=== PATIENT | female | born 1935 | race Caucasian/White ===

== ENCOUNTER 2017-02-27 13:59 | Inpatient (IN) | payer MEDICARE, BC ==
--- NOTE | 2017-02-27 14:35 | RAD ---
SINGLE VIEW OF THE CHEST: COMPARISON: None. HISTORY: Difficulty breathing and dyspnea. FINDINGS: A single view of the chest shows an enlarged cardiomediastinal silhouette. There is opacity along th e right heart border which may represent an infiltrate in the right lower or middle lobe. No pleural effusion is seen. IMPRESSION: Right-sided pneumonia. POS: [facility]
[2017-02-27 14:37] LABS: Actual Bicarbonate (HCO3a) 22.3 mEq/L (22-26); Base Excess (BEa) -7.5 mEq/L (0 (+/-) 2.5); CO2 Tension 64.8 mmHg (35.0-45.0); Hematocrit-ABG 48.4 % (36.0-47.0); Hemoglobin (Hb) 14.2 g/dL (12.0-16.0); O2 Tension (PaO2) 101.7 mmHg (80.0-100.0); pH, Arterial 7.16 (7.35-7.45)
[2017-02-27 14:38] LABS: Analyzer IN Cardio ER; Calcium, Ionized 1.2 mmol/L (1.12-1.30); Puncture Site RRA
[2017-02-27] MEDS ORDERED: cefTRIAXone\\ROCEPHIN 2 GM in Sodium Chloride 0.9% 100 ML IVPB SCH (14:45)
[2017-02-27 15:16] LABS: #Eosinphils 0.1 thou/uL (0.0-0.7); #Lymphocytes 0.6 thou/uL (1.20-3.40); #Monocytes 0.3 thou/uL (0.11-0.59); #Neutrophils 8.2 thou/uL (1.40-6.50); %Eosinophils 0.8 % (0.0-10.0); %Lymphocytes 6.6 % (21.0-51.0); %Monocytes 3.6 % (0.0-10.0); Hemoglobin 14.5 g/dL (12.0-16.0); Mean Corpuscular HGB CONC 32.3 g/dL (32.0-36.0); Mean Corpuscular Hemoglobin 32.2 pg (27.0-31.0); Mean Corpuscular Volume 99.4 fl (81.0-99.0); Mean Platelet Volume 8.7 fL (7.4-10.4); Platelet Count 150 thou/uL (130-400); Red Blood Cell (RBC) Count 4.52 mill/uL (4.20-5.40); White Blood Cell (WBC) Count 9.2 thou/uL (4.8-10.8)
[2017-02-27] MEDS ORDERED: Sodium Chloride 0.9% 1,000 ML IV SCH ×2 (15:38→21:40)
[2017-02-27] MEDS ORDERED: Acetaminophen 650 MG Suppository PR PRN (15:38)
[2017-02-27] MEDS ORDERED: Ondansetron HCl/PF 4 MG/2 ML Vial IVP PRN (15:38)
[2017-02-27 15:39] LABS: ALT (SGPT) 194 U/L (8-55); AST (SGOT) 137 U/L (5-34); Albumin 4.2 g/dL (3.4-4.8); Alkaline Phosphatase 103 U/L (40-150); Anion Gap 19 mmol/L (10-20); BUN (Urea Nitrogen) 22 mg/dL (9.8-20.1); Bilirubin, Total 0.6 mg/dL (0.2-1.2); CK (CPK) 185 U/L (29-168); Calc. Creatinine Clearance 0 mL/min (70-130); Calcium 9.2 mg/dL (7.8-10.44); Carbon Dioxide 20 mmol/L (23-31); Chloride 99 mmol/L (98-107); Estimated GFR-MDRD 58; Globulin 2.8 g/dL (2.4-3.5); Glucose 224 mg/dL (83-110); Potassium 4.3 mmol/L (3.5-5.1); Sodium 134 mmol/L (136-145)
[2017-02-27 15:44] LABS: CKMB 4.5 ng/mL (0-6.6); Troponin I 0.045 ng/mL (< 0.028)
[2017-02-27] MEDS ORDERED: Azithromycin 500 MG in Sodium Chloride 0.9% 250 ML 250 ML IVPB SCH (15:45)
[2017-02-27] MEDS ORDERED: Aspirin 325 MG TAB PO SCH (16:00)
[2017-02-27] MEDS ORDERED: Furosemide 20 MG/2 ML VIAL SLOW IVP SCH (16:00)
[2017-02-27 16:18] LABS: Actual Bicarbonate (HCO3a) 24.3 mEq/L (22-26); Base Excess (BEa) -0.8 mEq/L (0 (+/-) 2.5); CO2 Tension 41.6 mmHg (35.0-45.0); Hematocrit-ABG 45.6 % (36.0-47.0); Hemoglobin (Hb) 14.1 g/dL (12.0-16.0); O2 Tension (PaO2) 106.7 mmHg (80.0-100.0); pH, Arterial 7.38 (7.35-7.45)
[2017-02-27 16:19] LABS: Analyzer IN Cardio ER; Calcium, Ionized 1.2 mmol/L (1.12-1.30); Puncture Site RRA
--- NOTE | 2017-02-27 16:22 | HP ---
PRIMARY CARE PROVIDER: Dr. Gerardo Cole. [facility]. The patient relates she has been sick for 2 days, cough productive of yellow sputum, she was short of breath and saw a tonja waggoner doctor this morning. Got a chest x-ray and noted she had pneumonia and gave her a prescriptio n, but told her if she got worse to come to the hospital. She got progressively worse rapidly after that and came to the hospital and was found to be in acute combined respiratory failure and placed on BiPAP in the emergency room and is now markedly better. She is being admitted to the [facility] and Dr. Tori webb is seeing her in consultation at my request. PAST MEDICAL HISTORY: Hypertension, glaucoma. She takes Zebeta unknown dose, lisinopril unknown dos e, hydrochlorothiazide unknown dose, eyedrops unknown dose. ALLERGIES: She is allergic to BACTRIM. PAST SURGICAL HISTORY: Breast cancer in 1984, cataract surgery, bilateral bowel obstruction in 2007, hysterectomy in the distant past and appendectomy in the distant past. FAMILY HISTORY: Pertinent only for cancers. Her father of cancer, unknown type. Mother o f cholangiocarcinoma. She has an aunt with renal cell carcinoma and multiple other relatives with ca ncer. She is . FULL CODE status. is in the hospital. She has 2 daughters at bedsid e who will be her surrogate decision makers. She does not smoke. Drinks a glass of wine in the even ing, likes Kinyarwanda red frandy. REVIEW OF SYSTEMS: GENERAL: No headaches, dizziness, fainting. EYES: No double vision, blurred vi paulino, flashing lights. EAR, NOSE, AND THROAT: No ear pain or drainage. No nasal bleeding. No trou ble swallowing. She does have allergic drainage. CARDIAC: No chest pain, orthopnea or paroxysmal n octurnal dyspnea. RESPIRATIONS: See present illness. GASTROINTESTINAL: No nausea, vomiting, diarr hea, constipation or abdominal pain. GENITOURINARY: No hematuria, dysuria or nocturia. MUSCULOSKEL ETAL: No pain or swelling in arms or legs. NEUROLOGICAL: No strokes, seizures or focal weakness. PSYCHIATRIC: No anxiety or depression. SKIN: No bruising, bleeding or rash. HEME/LYMPH: No tende r or swollen lymph nodes in axilla, inguinal, or cervical area. PHYSICAL EXAMINATION: GENERAL: Patient is alert, on BiPAP, cooperative. VITAL SIGNS: Blood pressure 164/89, pulse 100, respirations 30 on BiPAP, O2 sat was 94% on nonrebrea ther. When she first came in, her O2 sat was 42% on room air. HEENT: Examination of her head, eyes, ears, nose, and throat reveals pupils are equal, round, and re active to light. Extraocular movements are intact. Sclerae white. Tympanic membranes are poorly vi sualized. She has cerumen bilaterally. Nose is clear. Oral mucous membranes are wet. Dental hygie ne is good. NECK: Supple, without jugular venous distention, adenopathy or thyromegaly. CHEST: Clear to percussion. She has rales in the right lower chest. She has mild to moderate wheez es diffusely. HEART: Regular rate and rhythm. First and second heart sounds are clear and heard, no murmurs or ga llops. ABDOMEN: Soft, bowel sounds are normal. There is no hepatosplenomegaly, no mass, no rebound. EXTREMITIES: Reveal no cyanosis, clubbing or edema. She was markedly cyanotic when she first arrive d. PULSES: Carotid, radial, femoral, and dorsalis pedis pulses full and symmetric. SKIN: Warm and dry without bruises or rash. HEME/LYMPH NODE: No tender or swollen lymph nodes in axilla, inguinal, or cervical area. NEUROLOGIC: Cranial nerves II-XII are intact. Deep tendon reflexes symmetric. Moves all extremitie s. IMAGING DATA: Chest x-ray reviewed by me, borderline cardiomegaly, infiltrate in the right lower aurelio g field. The remainder of her lung mckeon is clear. There is no evidence of congestive heart failur e. Chest x-ray is mildly rotated. EKG is pending. We will review when available. LABORATORY DATA: Only laboratory currently available is arterial blood gas; pH 7.16, pCO2 65, pO2 10 2 on 100% O2. FOLLOWUP: Not in the computer but I have reviewed it and it is normal pH and normal CO2. Comp metab olic profile, CBC are pending. DIAGNOSES: 1. Right-sided pneumonia. 2. Acute combined respiratory failure with hypercapnia and hypoxemia. 3. Diffuse wheezing consistent with acute asthma or reactive airway disease. 4. Hypertension. 5. Glaucoma. PLAN: 1. The patient is on BiPAP and will be going to IMCU. 2. The patient currently being seen by Dr. aMurer, Pulmonology. 3. O2 to keep sat greater than 92%. 4. Nebulizers q.6 hours and q.3 hours p.r.n. 5. Cultures have been drawn. Zithromax 500 mg IV daily, Rocephin 2 grams IV daily. We will review and put on routine home medicines as appropriate. Further recommendations; will await Dr. Maurer's con sult for additional recommendations.
[2017-02-27] MEDS ORDERED: Furosemide 20 MG/2 ML VIAL ONE (16:27)
[2017-02-27 16:30] LABS: Bilirubin Negative (Negative); Blood, Urine Negative (Negative); Clarity CLEAR (Clear); Glucose, Urine (Dipstick) Negative (Negative); Leukocyte Negative (Negative); Nitrite Negative (Negative); Protein, Urine (Dipstick) 100 mg/dL (Neg-Trace); Specific Gravity, Urine 1.023 (1.002-1.036); Urobilinogen 0.2 mg/dL (0.2-1.0); pH, Urine 5.5 (5.0-9.0)
[2017-02-27 16:32] LABS: Bacteria/HPF None Seen HPF (None Seen); Pathc Cast-AUWi Flag 2.16 (0-2.49); RBC/HPF 0-3 HPF (0-3); Squamous Epithelial 0-3 HPF (0-3); WBC/HPF 0-3 HPF (0-3)
[2017-02-27 16:41] LABS: Hyaline Casts/LPF 0-3 HYALINE CAST LPF (0-3 Hyaline); Renal Epithelial None Seen HPF (0-3); Transitional Epithelial NONE SEEN HPF (0-3)
[2017-02-27 17:36] VITALS: BMI 31.7
[2017-02-27 18:36] LABS: Troponin I 0.253 ng/mL (< 0.028)
[2017-02-27 19:32] LABS: Lactic Acid 2.7 mmol/L (0.5-2.2)
[2017-02-27] MEDS: Timolol 0.5% Ophth Soln 5 ml Bottle EA EYE SCH (20:07)
[2017-02-27] MEDS: Brimonidine Tartrate 0.2% Ophth Soln 5 ml Bottle EA EYE SCH (20:07)
[2017-02-27] MEDS: Guaifenesin DM 100-10/5 ML UDCUP PO PRN (20:15)
[2017-02-27] MEDS: Latanoprost 0.005% Ophth Soln 2.5 ml Bottle EA EYE SCH (21:00)
[2017-02-27] MEDS ORDERED: Nitroglycerin 0.4 MG TAB (25 Tab Bottle) PO PRN (21:34)
--- NOTE | 2017-02-27 21:41 | PDOC.EVN ---
Event Note - Event Note Event Note: RN called with elevated troponins. Echo pend. No cardiac history. No CP per RN. Will repeat troponins in AM.
--- NOTE | 2017-02-27 23:14 | CON ---
DATE OF CONSULTATION: 02/27/2017 HISTORY OF PRESENT ILLNESS: This is an 81-year-old female patient of Dr. Cole who was seen today wi th shortness of breath and a cough, but apparently, no fever or chills. It started last night with d ifficulty breathing. X-ray today shows right-sided infiltrate, this appears to be more cephalization as apparently her sats were low on room air. She was placed on BiPAP. She is a nonsmoker with no prior history of TB, history of asthma. PAST MEDICAL HISTORY: Pertinent otherwise for previous glaucoma, hypertension. PAST SURGICAL HISTORY: Mastectomy, small-bowel obstruction, hysterectomy, breast cancer. MEDICATIONS: In the ER, she was given Rocephin and Zithromax. She was placed on BiPAP because of her ongoing respiratory distress to which she has responded quite well. ALLERGIES: SULFA, TRIMETHOPRIM. REVIEW OF SYSTEMS: Otherwise, 10-point negative. PHYSICAL EXAMINATION: VITAL SIGNS: Blood pressure is 120/80, pulse 80, sats 95% on BiPAP, respirations 18. CHEST: Bilateral crackles. CARDIAC: Normal S1, S2, no gallops. ABDOMEN: Soft, no masses. IMAGING: EKG showed a septal infarct. LABORATORY DATA: White count 9000, H&H 14 and 42, platelet count 150. PO2 is 101, PCO2 16% nonrebre ather and BiPAP improved. AST and ALT elevated at 137 and 194. BNP is 817. Influenza is negative, shows cardiomegaly, cephalization, right-sided pneumonia little bit more on the left side. IMPRESSION: 1. Pneumonia versus congestive heart failure. 2. Nonsmoker. 3. Breast cancer. 4. Hypertension. 5. Glaucoma. PLAN: Trial of Lasix. Echocardiogram is ordered. Agree with broad-spectrum antibiotics, steroids, and neb treatments. We will follow.
[2017-02-28 04:24] LABS: #Lymphocytes 0.6 thou/uL (1.20-3.40); #Monocytes 0.8 thou/uL (0.11-0.59); #Neutrophils 13.7 thou/uL (1.40-6.50); %Eosinophils 0.1 % (0.0-10.0); %Lymphocytes 3.9 % (21.0-51.0); Mean Corpuscular HGB CONC 32.7 g/dL (32.0-36.0); Mean Corpuscular Hemoglobin 32.3 pg (27.0-31.0); Mean Corpuscular Volume 98.6 fl (81.0-99.0); Mean Platelet Volume 9.1 fL (7.4-10.4); PLT Morphology Comment Appears Decreased; Platelet Count 106 thou/uL (130-400); Red Blood Cell (RBC) Count 4.03 mill/uL (4.20-5.40)
[2017-02-28 04:28] LABS: Anion Gap 15 mmol/L (10-20); BUN (Urea Nitrogen) 23 mg/dL (9.8-20.1); Calc. Creatinine Clearance 65 mL/min (70-130); Calcium 8.5 mg/dL (7.8-10.44); Carbon Dioxide 24 mmol/L (23-31); Chloride 101 mmol/L (98-107); Estimated GFR-MDRD 74; Glucose 114 mg/dL (83-110); Magnesium 1.7 mg/dL (1.6-2.6); Potassium 3.4 mmol/L (3.5-5.1); Sodium 137 mmol/L (136-145)
[2017-02-28 04:35] LABS: Troponin I 1.004 ng/mL (< 0.028)
--- NOTE | 2017-02-28 08:16 | RAD ---
UPRIGHT PORTABLE CHEST 1 VIEW: Date: 02/28/17 HISTORY: [id number] female with respiratory insufficiency. COMPARISON: 02/27/17. FINDINGS: Monitor leads overlie the chest. Mild cardiomegaly. Patchy alveolar and interstitial opacity changes in the perihilar and infrahilar regions bilaterally, overall stable. Continue short-term follow-up. IMPRESSION: Overall stable bilateral alveolar and interstitial opacities in the perihilar and infrahilar regions bilaterally with mild or borderline cardiomegaly. Continue short-term follow-up. POS: [facility]
[2017-02-28] MEDS: predniSONE 20 MG TAB PO SCH (08:58)
[2017-02-28] MEDS: Aspirin 81 mg Enteric Coated Tablet PO SCH (08:58)
[2017-02-28] MEDS: Bisoprolol Fumarate 5 MG TAB PO SCH (08:59)
[2017-02-28] MEDS: Lisinopril/Hydrochlorothiazide 20 mg/12.5 mg Tablet PO SCH (08:59)
[2017-02-28] MEDS: Timolol 0.5% Ophth Soln 5 ml Bottle EA EYE SCH ×2 (09:00→20:52)
[2017-02-28] MEDS: Enoxaparin Sodium 40 MG/0.4 ML SYRINGE SC SCH (09:01)
[2017-02-28] MEDS: Brimonidine Tartrate 0.2% Ophth Soln 5 ml Bottle EA EYE SCH ×2 (09:01→20:52)
--- NOTE | 2017-02-28 11:17 | PDOC.PN ---
- Subjective Encounter Start Date: 02/28/17 Encounter Start Time: 11:16 Patient seen at bedside. No chest pain, still SOB, weaned off BiPaP. - Objective MAR Reviewed: Yes Vital Signs & Weight: Vital Signs (12 hours) Temp Pulse Resp BP BP Pulse Ox 02/28/17 09:00 98 144/63 H 02/28/17 08:59 100 144/63 H 02/28/17 08:26 98 02/28/17 08:23 93 20 98 02/28/17 08:00 99.0 F 83 22 H 144/63 H 99 02/28/17 04:14 98.1 F 82 18 117/54 L 97 02/28/17 00:32 84 12 97 02/28/17 00:15 99.7 F H 81 20 129/58 L 97 Weight Weight 159 lb 9.6 oz I&O: 02/27/17 02/28/17 03/01/17 06:59 06:59 06:59 Intake Total 1320 Output Total 1700 Balance -380 Result Diagrams: 02/28/17 03:14 02/28/17 03:14 Phys Exam - Physical Examination Constitutional: NAD HEENT: moist MMs Neck: no JVD rales, crackles b/l Cardiovascular: RRR Gastrointestinal: soft Musculoskeletal: no edema, pulses present Neurological: normal sensation Psychiatric: A&O x 3 Dx/Plan (1) Acute respiratory failure Code(s): J96.00 - ACUTE RESPIRATORY FAILURE, UNSP W HYPOXIA OR HYPERCAPNIA Status: Acute (2) Hypertension Code(s): I10 - ESSENTIAL (PRIMARY) HYPERTENSION Status: Chronic (3) Hypokalemia Code(s): E87.6 - HYPOKALEMIA Status: Acute (4) PNA (pneumonia) Code(s): J18.9 - PNEUMONIA, UNSPECIFIED ORGANISM Status: Suspected - Plan cont current plan of care, plan discussed w/ family, continue antibiotics, respiratory therapy, out of bed/ambulate, DVT proph w/lovenox * D/C IV Fluids. * Replete K+ * Follow up echocardiogram * Continue with IV antibiotics * PO Prednisone * Consult Cardiology (increasing troponins, no cardiac workup in the past, with risk factors. Troponins may be due to demand ischemia) * Supportive Care
[2017-02-28] MEDS ORDERED: Potassium Chloride 20 MEQ TAB PO SCH (11:30)
[2017-02-28] MEDS: Acetaminophen 325 MG TAB PO PRN (12:03)
[2017-02-28] MEDS: Guaifenesin DM 100-10/5 ML UDCUP PO PRN (13:20)
--- NOTE | 2017-02-28 13:52 | PRG ---
DATE OF SERVICE: 02/28/2017 SUBJECTIVE: This morning, he is awake, alert, and responsive. She says she is somewhat better. OBJECTIVE: VITAL SIGNS: Blood pressure 140/63, sats 98% on 2 liters, temperature 99. CHEST: Reveals bilateral rhonchi and crackles. CARDIAC: Normal S1, S2. ABDOMEN: Soft, no masses. LABORATORY DATA: Echo pending. I's and O's are negative. X-ray still shows bilateral infiltrates. White count 9000, H and H 11 and 44, platelet count 150. Glucose 224. Sodium 134. Lactic acid was 4. BNP was 87. Troponin was elevated at 0.05. EKG was normal. IMPRESSION: 1. Bilateral bronchopneumonia. 2. Cardiac component related to BNP. PLAN: Continue Zithromax, ceftriaxone, prednisone, neb treatments, and supportive care. Await input from Cardiology. We will follow.
[2017-02-28] MEDS ORDERED: cefTRIAXone\\ROCEPHIN 2 GM in Sodium Chloride 0.9% 100 ML IVPB SCH (15:00)
[2017-02-28] MEDS ORDERED: Azithromycin 500 MG in Sodium Chloride 0.9% 250 ML 250 ML IVPB SCH (16:00)
[2017-02-28] MEDS: Latanoprost 0.005% Ophth Soln 2.5 ml Bottle EA EYE SCH (21:26)
[2017-03-01] MEDS: Guaifenesin DM 100-10/5 ML UDCUP PO PRN (00:56)
[2017-03-01] MEDS: Acetaminophen 325 MG TAB PO PRN ×3 (03:13→19:05)
[2017-03-01 05:09] LABS: #Lymphocytes 0.7 thou/uL (1.20-3.40); #Monocytes 0.5 thou/uL (0.11-0.59); #Neutrophils 9.3 thou/uL (1.40-6.50); %Basophils 0.2 % (0.0-1.0); %Eosinophils 0.1 % (0.0-10.0); %Monocytes 4.7 % (0.0-10.0); %Neutrophils 87.9 % (42.0-75.0); Mean Corpuscular HGB CONC 34.5 g/dL (32.0-36.0); Mean Corpuscular Hemoglobin 33.8 pg (27.0-31.0); Mean Corpuscular Volume 98.1 fl (81.0-99.0); Mean Platelet Volume 9.1 fL (7.4-10.4); Platelet Count 113 thou/uL (130-400); RBC Distribution Width 12.2 % (11.5-14.5); Red Blood Cell (RBC) Count 3.85 mill/uL (4.20-5.40); White Blood Cell (WBC) Count 10.6 thou/uL (4.8-10.8)
[2017-03-01 05:18] LABS: ALT (SGPT) 102 U/L (8-55); AST (SGOT) 67 U/L (5-34); Albumin 3.4 g/dL (3.4-4.8); Alkaline Phosphatase 71 U/L (40-150); Anion Gap 12 mmol/L (10-20); BUN (Urea Nitrogen) 26 mg/dL (9.8-20.1); Bilirubin, Total 0.5 mg/dL (0.2-1.2); Calc. Creatinine Clearance 66 mL/min (70-130); Calcium 8.7 mg/dL (7.8-10.44); Carbon Dioxide 26 mmol/L (23-31); Chloride 101 mmol/L (98-107); Estimated GFR-MDRD 74; Globulin 2.2 g/dL (2.4-3.5); Glucose 128 mg/dL (83-110); Potassium 3.9 mmol/L (3.5-5.1); Protein, Total 5.6 g/dL (6.0-8.3); Sodium 135 mmol/L (136-145)
--- NOTE | 2017-03-01 08:44 | CON ---
DATE OF CONSULTATION: 02/28/2017 REASON FOR CONSULTATION: Elevated troponin. PRIMARY LOCATION MAN: None. HISTORY OF PRESENT ILLNESS: Ms. Hester is a very pleasant 81-year-old woman with no previous cardiac history who recently presented with fevers, chills, cough, and congestion. She was diagnosed with b ronchopneumonia. Her troponin was elevated. No previous history of coronary artery disease. No cory st pain or pressure noted. PAST MEDICAL HISTORY: Hypertension, mastectomy, hysterectomy and breast cancer. ALLERGIES: SULFA and METHOPRENE. REVIEW OF SYSTEMS: Ten point review of systems is reviewed and is as above, otherwise negative. PHYSICAL EXAMINATION: GENERAL: Patient is a pleasant female who is in no acute distress. The patient appears her stated a ge. VITAL SIGNS: Blood pressure 136/56, pulse 90, temperature 98.4. NEUROLOGIC: The patient is alert and oriented times 3 with no focal neurologic deficits. HEENT: Sclerae without icterus. Mouth has moist mucous membranes with normal pallor. NECK: No JVD. Carotid upstroke brisk. No bruits bilaterally. LUNGS: Rales and rhonchi bilaterally. CARDIAC: Regular rate and rhythm with normal S1 and S2. No S3 or S4 noted. No significant rubs, mu rmurs, thrills, or gallops noted throughout the precordium. PMI is not displaced. There is no олег ternal heave. ABDOMEN: Soft, nontender, nondistended. No peritoneal signs present. No hepatosplenomegaly. No abnormal striae. EXTREMITIES: 2+ femoral and 2+ dorsalis pedis pulses. No cyanosis, clubbing, or edema. SKIN: No gross abnormalities. PERTINENT LABORATORY DATA AND IMAGING DATA: Hemoglobin 10.6, troponin 1.004, creatinine 0.75. EKG, normal sinus rhythm, nonspecific ST-T wave changes. IMPRESSION: 1. Elevated troponin. 2. Bronchopneumonia. RECOMMENDATIONS: Elevated troponin likely related to underlying condition. She has been diagnosed w ith bronchopneumonia. She is currently on antibiotic therapy. This is not consistent with acute cor onary syndrome. Would treat conservatively from CV standpoint. Would recommend aspirin, beta blocke r therapy, BEATRIZ inhibitor therapy and statin treatment. Antibiotic therapy per primary team and Dr. Tori Maurer. We will continue to follow with you.
[2017-03-01] MEDS: Aspirin 81 mg Enteric Coated Tablet PO SCH (09:21)
[2017-03-01] MEDS: Bisoprolol Fumarate 5 MG TAB PO SCH (09:21)
[2017-03-01] MEDS: predniSONE 20 MG TAB PO SCH (09:21)
[2017-03-01] MEDS: Enoxaparin Sodium 40 MG/0.4 ML SYRINGE SC SCH (09:22)
[2017-03-01] MEDS: Lisinopril/Hydrochlorothiazide 20 mg/12.5 mg Tablet PO SCH (09:22)
[2017-03-01] MEDS: Timolol 0.5% Ophth Soln 5 ml Bottle EA EYE SCH ×2 (09:23→20:13)
[2017-03-01] MEDS: Brimonidine Tartrate 0.2% Ophth Soln 5 ml Bottle EA EYE SCH ×2 (09:23→20:14)
--- NOTE | 2017-03-01 09:32 | RAD ---
UPRIGHT PORTABLE CHEST 1 VIEW: Date: 03/01/17 HISTORY: 81-year-old female with respiratory insufficiency. FINDINGS: Again noted is cardiomegaly with bilateral alveolar and interstitial parenchymal changes in the perih ilar regions and lower lung zones, stable from prior study. IMPRESSION: Stable bilateral parenchymal changes and cardiomegaly. Continue short-term follow-up for clearing or stability. POS: [facility]
--- NOTE | 2017-03-01 11:34 | PDOC.PN ---
- Subjective Encounter Start Date: 03/01/17 Encounter Start Time: 11:30 Patient seen at bedside. Was SOB last night, and felt SOB earlier this morning when going to the bathroom. - Objective MAR Reviewed: Yes Vital Signs & Weight: Vital Signs (12 hours) Temp Pulse Resp BP Pulse Ox 03/01/17 11:22 97.1 F L 79 20 148/64 H 100 03/01/17 09:23 90 03/01/17 09:22 98 03/01/17 08:18 90 18 97 03/01/17 07:11 98.4 F 90 18 136/56 L 95 03/01/17 05:01 97.5 F L 92 18 153/72 H 100 03/01/17 03:45 83 16 95 03/01/17 00:29 81 12 100 02/28/17 23:50 98.6 F 88 22 H 136/62 100 Weight Weight 158 lb 9.6 oz I&O: 02/28/17 03/01/17 03/02/17 06:59 06:59 06:59 Intake Total 1320 2350 Output Total 1700 1025 Balance -380 1325 Result Diagrams: 03/01/17 04:33 03/01/17 04:33 Phys Exam - Physical Examination Constitutional: NAD HEENT: moist MMs Neck: no nodes mild wheezings, rales Cardiovascular: RRR Gastrointestinal: soft Musculoskeletal: pulses present Neurological: moves all 4 limbs Psychiatric: A&O x 3 Skin: normal turgor Dx/Plan (1) Acute respiratory failure Code(s): J96.00 - ACUTE RESPIRATORY FAILURE, UNSP W HYPOXIA OR HYPERCAPNIA Status: Acute (2) Hypertension Code(s): I10 - ESSENTIAL (PRIMARY) HYPERTENSION Status: Chronic (3) Hypokalemia Code(s): E87.6 - HYPOKALEMIA Status: Acute (4) PNA (pneumonia) Code(s): J18.9 - PNEUMONIA, UNSPECIFIED ORGANISM Status: Suspected (5) Influenza B Code(s): J10.1 - FLU DUE TO OTH IDENT INFLUENZA VIRUS W OTH RESP MANIFEST Status: Acute - Plan cont current plan of care, continue antibiotics, social contact worker, respiratory therapy, out of bed/ambulate, DVT proph w/lovenox * Continue with current management. * Start Tamiflu for Influenza (symptoms began last Thursday) * Appreciate Cardiology input- Troponin elevation is likely from pulmonary component. Conservative treatment at this point. Will follow up further recommendations * Low dose BB * ASA/BEATRIZ * Will hold statin until LFTs normalize. Check in AM * OOB as tolerated
[2017-03-01] MEDS ORDERED: Oseltamivir 75 MG CAP PO SCH ×2 (11:45→21:00)
[2017-03-01] MEDS ORDERED: Furosemide 20 MG TAB PO SCH (14:00)
--- NOTE | 2017-03-01 15:57 | PRG ---
DATE OF SERVICE: 03/01/2017 SUBJECTIVE: This morning, she says she had difficulty breathing. PHYSICAL EXAMINATION: VITAL SIGNS: Blood pressure 148/64, O2 saturation 100% on 2 liters, temperature 97. CHEST: Decreased breath sounds without any wheezing. CARDIAC: Normal S1, S2. ABDOMEN: Soft, no masses. LABORATORY DATA AND IMAGING DATA: Electrolytes are normal. White count is 10,000. X-ray shows righ t-sided pleural effusion, small infiltrate. Her echo showed depressed EF of 40%-45%. IMPRESSION: 1. Right-sided pneumonia versus pleural effusion. 2. Cardiomegaly. 3. Influenza B. I doubt this is significant pneumonia. PLAN: I am switching over to oral doxycycline. I think in my mind, most of her problem appears to b e cardiac, start low dose diuretics. Continue Coreg. She is started on Tamiflu for influenza B. We will follow.
[2017-03-01] MEDS ORDERED: Carvedilol 3.125 MG TAB PO SCH (17:00)
[2017-03-01] MEDS: Simethicone Chewable 80 MG TAB PO PRN (19:05)
[2017-03-01] MEDS: Oseltamivir 75 MG CAP PO SCH (20:12)
[2017-03-01] MEDS: Doxycycline 100 MG CAP PO SCH (20:13)
[2017-03-01] MEDS: Latanoprost 0.005% Ophth Soln 2.5 ml Bottle EA EYE SCH (21:12)
[2017-03-02 04:18] LABS: #Lymphocytes 0.8 thou/uL (1.20-3.40); #Monocytes 0.5 thou/uL (0.11-0.59); #Neutrophils 5.6 thou/uL (1.40-6.50); %Basophils 0.1 % (0.0-1.0); %Eosinophils 0.2 % (0.0-10.0); %Monocytes 7.1 % (0.0-10.0); %Neutrophils 81.6 % (42.0-75.0); Hemoglobin 12.7 g/dL (12.0-16.0); Mean Corpuscular HGB CONC 32.8 g/dL (32.0-36.0); Mean Corpuscular Hemoglobin 32.4 pg (27.0-31.0); Mean Corpuscular Volume 98.7 fl (81.0-99.0); Platelet Count 130 thou/uL (130-400); Red Blood Cell (RBC) Count 3.91 mill/uL (4.20-5.40); White Blood Cell (WBC) Count 6.8 thou/uL (4.8-10.8)
[2017-03-02 04:39] LABS: ALT (SGPT) 75 U/L (8-55); AST (SGOT) 52 U/L (5-34); Albumin 3.4 g/dL (3.4-4.8); Alkaline Phosphatase 62 U/L (40-150); Anion Gap 13 mmol/L (10-20); BUN (Urea Nitrogen) 23 mg/dL (9.8-20.1); Bilirubin, Direct 0.3 mg/dL (0.1-0.3); Bilirubin, Total 0.6 mg/dL (0.2-1.2); Calc. Creatinine Clearance 68 mL/min (70-130); Calcium 8.7 mg/dL (7.8-10.44); Carbon Dioxide 30 mmol/L (23-31); Chloride 98 mmol/L (98-107); Estimated GFR-MDRD 78; Globulin 2.4 g/dL (2.4-3.5); Glucose 103 mg/dL (83-110); Potassium 4.1 mmol/L (3.5-5.1); Protein, Total 5.8 g/dL (6.0-8.3); Sodium 137 mmol/L (136-145)
[2017-03-02] MEDS: Guaifenesin DM 100-10/5 ML UDCUP PO PRN ×2 (05:02→20:43)
[2017-03-02] MEDS: Simethicone Chewable 80 MG TAB PO PRN ×2 (05:26→20:43)
[2017-03-02] MEDS ORDERED: Furosemide 40 MG/4 ML VIAL IVP SCH (07:45)
--- NOTE | 2017-03-02 08:11 | RAD ---
CHEST 1 VIEW: Date: 03/02/17 HISTORY: Dyspnea. Follow-up. COMPARISON: 03/01/17. FINDINGS: Cardiac silhouette remains magnified and enlarged. Pulmonary vasculature remains slightly engorged. P atchy bibasilar infiltrates have improved slightly. Mediastinum remains midline. monitor worker lead s overlie the chest. IMPRESSION: Slight interval improved aeration at the lung bases. Pulmonary vascular congestion otherwise remains stable. POS: [facility]
[2017-03-02] MEDS: Brimonidine Tartrate 0.2% Ophth Soln 5 ml Bottle EA EYE SCH ×2 (08:23→20:43)
[2017-03-02] MEDS: Timolol 0.5% Ophth Soln 5 ml Bottle EA EYE SCH ×2 (08:23→20:44)
[2017-03-02] MEDS: Doxycycline 100 MG CAP PO SCH ×2 (08:24→20:43)
[2017-03-02] MEDS: predniSONE 20 MG TAB PO SCH (08:24)
[2017-03-02] MEDS: Oseltamivir 75 MG CAP PO SCH ×2 (08:24→20:43)
[2017-03-02] MEDS: Aspirin 81 mg Enteric Coated Tablet PO SCH (08:24)
[2017-03-02] MEDS: Lisinopril/Hydrochlorothiazide 20 mg/12.5 mg Tablet PO SCH (08:24)
[2017-03-02] MEDS: Enoxaparin Sodium 40 MG/0.4 ML SYRINGE SC SCH (08:25)
[2017-03-02] MEDS: Bisoprolol Fumarate 5 MG TAB PO SCH (08:25)
[2017-03-02] MEDS ORDERED: Furosemide 20 MG TAB PO SCH (09:00)
--- NOTE | 2017-03-02 09:07 | PRG ---
DATE OF SERVICE: 03/02/2017 Ms. Hester continues to have shortness of breath, although improved. No chest pain or pressure noted . PHYSICAL EXAMINATION: VITAL SIGNS: Blood pressure 172/88, pulse 96, temperature is afebrile. LUNGS: Rhonchi and rales bilaterally with crackles. CARDIAC: Regular rate and rhythm. ABDOMEN: Soft, nontender, nondistended. EXTREMITIES: No edema. PERTINENT LABORATORY DATA: Hemoglobin 12.7, peak troponin 1.004. IMPRESSION: Shortness of breath. RECOMMENDATIONS: I discussed the case with Dr. Wally Maurer. He feel this is less likely a viral illne ss. Her left ventricular ejection fraction as diminished at 40-45 with wall motion abnormalities sug gesting LAD distribution. At this point, we will continue to diuresis. We will also assist with blo od pressure management. She is currently on lisinopril. Carvedilol was discontinued. She is on bis oprolol and would. Continue aspirin. Would also recommend statin therapy. I also discussed coronary angiography with Ms. Hester. The risks included, but are not limited to th e following: , stroke, VA, need for emergency surgery, loss of limb, bleeding, and infection, a s well as a reaction to the dye causing kidney failure and needing long-term dialysis. I also discus sed the risks of PCI to include all of the above including coronary dissection and perforation in add ition to acute stent thrombosis and restenosis. All questions about the procedure were answered. Gi robe the above, the patient agreed to proceed with coronary angiography and possible PCI. There are no contraindications for drug-coated stent placement if needed. Further recommendation fay l be pending the above.
--- NOTE | 2017-03-02 09:26 | PRG ---
DATE OF SERVICE: 03/02/2017 This morning she is better, less short of breath. X-ray still shows cardiomegaly, small pleural effu paulino and infiltrate. She denied any cough. PHYSICAL EXAMINATION: VITAL SIGNS: Blood pressure elevated 172/88, sats are 99 on 2 liters, respirations 27. I's and O's are 2140 in, 125 out. CHEST: Crackles bilaterally. CARDIOVASCULAR: Normal S1-S2. No gallops. White count normal at 6. Electrolytes are normal. IMPRESSION: 1. Congestive heart failure. 2. Possibly superimposed pneumonia or bronchitis. PLAN: She is for a cath tomorrow. She has got influenza B. She is on Tamiflu. Continue diuretics low dose, supportive care. I will follow.
--- NOTE | 2017-03-02 11:44 | PDOC.PN ---
- Subjective Encounter Start Date: 03/02/17 Encounter Start Time: 12:00 Subjective: Cough somewhat improved, SOB much better. No chest pain currently. Did -: have some left upper back pain with movement and deep breaths last night. - Objective MAR Reviewed: Yes Vital Signs & Weight: Vital Signs (12 hours) Temp Pulse Resp BP BP Pulse Ox 03/02/17 08:32 99 03/02/17 08:30 96 18 99 03/02/17 08:24 80 172/88 H 03/02/17 08:23 80 172/88 H 03/02/17 08:00 97.9 F 80 19 91 L 03/02/17 07:26 97.9 F 80 19 172/88 H 91 L 03/02/17 05:23 98 03/02/17 04:00 98.2 F 78 20 154/67 H 100 03/02/17 01:29 71 18 100 03/02/17 00:00 98.8 F 65 20 144/65 H 100 Weight Weight 159 lb 2 oz I&O: 03/01/17 03/02/17 03/03/17 06:59 06:59 06:59 Intake Total 2350 2140 Output Total 1025 1250 Balance 1325 890 Result Diagrams: 03/02/17 03:33 03/02/17 03:33 Phys Exam - Physical Examination Constitutional: NAD HEENT: moist MMs coarse breath sounds bilaterally, good air movement throughout Cardiovascular: RRR, no significant murmur Gastrointestinal: soft, positive bowel sounds Musculoskeletal: no edema Neurological: non-focal, moves all 4 limbs Psychiatric: normal affect, A&O x 3 Dx/Plan (1) Influenza B Code(s): J10.1 - FLU DUE TO OTH IDENT INFLUENZA VIRUS W OTH RESP MANIFEST Status: Acute (2) PNA (pneumonia) Code(s): J18.9 - PNEUMONIA, UNSPECIFIED ORGANISM Status: Suspected Comment: On Doxycycline and Tamiflu (3) Acute respiratory failure Code(s): J96.00 - ACUTE RESPIRATORY FAILURE, UNSP W HYPOXIA OR HYPERCAPNIA Status: Acute (4) Hypokalemia Code(s): E87.6 - HYPOKALEMIA Status: Resolved (5) Hypertension Code(s): I10 - ESSENTIAL (PRIMARY) HYPERTENSION Status: Chronic (6) Acute systolic CHF (congestive heart failure) Code(s): I50.21 - ACUTE SYSTOLIC (CONGESTIVE) HEART FAILURE Status: Acute Comment: EF 40-45% (7) NSTEMI (non-ST elevated myocardial infarction) Code(s): I21.4 - NON-ST ELEVATION (NSTEMI) MYOCARDIAL INFARCTION Status: Acute Comment: Plan for cath 03/03/2017 - Plan cont current plan of care, continue antibiotics, DVT proph w/lovenox * . - Discharge Day Encounter end time: 12:30
[2017-03-02] MEDS: Latanoprost 0.005% Ophth Soln 2.5 ml Bottle EA EYE SCH (21:12)
[2017-03-03] MEDS: Lisinopril/Hydrochlorothiazide 20 mg/12.5 mg Tablet PO SCH (05:20)
[2017-03-03] MEDS: predniSONE 20 MG TAB PO SCH (05:21)
[2017-03-03] MEDS: Bisoprolol Fumarate 5 MG TAB PO SCH (05:21)
[2017-03-03] MEDS: Aspirin 81 mg Enteric Coated Tablet PO SCH (05:21)
[2017-03-03] MEDS: Enoxaparin Sodium 40 MG/0.4 ML SYRINGE SC SCH (05:22)
[2017-03-03 08:06] LABS: INR-International Normal Ratio 0.9; Prothrombin Time 12.5 SEC (12.0-14.7)
[2017-03-03] MEDS ORDERED: Iopamidol 370 76% 100 ML VIAL ONE (08:12)
[2017-03-03] MEDS ORDERED: Communication Order-Pharmacy FS SCH (09:30)
[2017-03-03] MEDS ORDERED: Diazepam 5 MG TAB PO SCH (09:30)
[2017-03-03] MEDS ORDERED: Acetaminophen/Codeine 30-300mg Tablet PO PRN ×2 (10:42)
[2017-03-03] MEDS ORDERED: Nitroglycerin 0.4 MG TAB (25 Tab Bottle) SL PRN (10:42)
[2017-03-03] MEDS ORDERED: traMADol HCl 50 MG TAB PO PRN (10:42)
[2017-03-03] MEDS ORDERED: Sodium Chloride 0.9% 1,000 ML IV SCH (10:45)
[2017-03-03] MEDS ORDERED: Sodium Chloride 0.9% 200 ML IV SCH (11:00)
[2017-03-03] MEDS: Sodium Chloride 0.9% 1,000 ML IV SCH (11:16)
[2017-03-03] MEDS: Doxycycline 100 MG CAP PO SCH ×2 (11:23→21:20)
[2017-03-03] MEDS: Oseltamivir 75 MG CAP PO SCH ×2 (11:23→21:21)
[2017-03-03] MEDS: Brimonidine Tartrate 0.2% Ophth Soln 5 ml Bottle EA EYE SCH ×2 (11:23→21:19)
[2017-03-03] MEDS: Timolol 0.5% Ophth Soln 5 ml Bottle EA EYE SCH ×2 (11:24→21:19)
--- NOTE | 2017-03-03 11:51 | PRG ---
DATE OF SERVICE: 03/03/2017 SUBJECTIVE: Aimee Hester is still complaining of cough, but less shortness of breath, chest pain. She is scheduled for cardiac catheterization today. OBJECTIVE: VITAL SIGNS: Blood pressure 167/74, sats are 97% on 2 liters, respiratory rate 18, temperature 97. CHEST: Chest reveals decreased breath sounds, no wheezing. CARDIAC: Normal S1, S2. No gallops. ABDOMEN: Soft, no masses. IMPRESSION: 1. Abnormal troponin. 2. Congestive heart failure. 3. Pneumonia. 4. Bronchitis and rhinitis. PLAN: I will start Flonase for postnasal drip, otherwise await results of the cath, antibiotics, fanny roids. We will follow.
--- NOTE | 2017-03-03 19:38 | PDOC.PN ---
- Subjective Encounter Start Date: 03/03/17 Encounter Start Time: 19:00 Patient seen and examined. No new complaints. No overnight events. No CP. Dry cough +. s/p Cath - Objective MAR Reviewed: Yes Vital Signs & Weight: Vital Signs (12 hours) Temp Pulse Resp BP BP Pulse Ox 03/03/17 18:42 83 18 95 03/03/17 16:00 97.6 F 85 24 H 158/58 H 92 L 03/03/17 12:58 80 18 96 03/03/17 12:00 97 F L 78 24 H 168/73 H 95 03/03/17 11:24 84 158/73 H 03/03/17 10:42 84 16 158/73 H 158/73 H 94 L 03/03/17 09:06 84 20 96 03/03/17 08:00 97 F L 79 24 H 167/74 H 97 03/03/17 07:41 98.3 F 82 18 97 Weight Weight 159 lb 2 oz I&O: 03/02/17 03/03/17 03/04/17 06:59 06:59 06:59 Intake Total 2140 720 1200 Output Total 1250 1950 950 Balance 890 -1230 250 Result Diagrams: 03/04/17 04:26 03/04/17 04:26 EKG Reviewed by me: Yes (Tele SR) Phys Exam - Physical Examination Constitutional: NAD Respiratory: no wheezing, no rhonchi Cardiovascular: RRR, no rub Gastrointestinal: soft, non-tender, positive bowel sounds Musculoskeletal: no edema Neurological: moves all 4 limbs Dx/Plan - Plan DVT proph w/SCDs IMPRESSION: 1. Acute hypoxic/hypercapnic respiratory failure due to Pneumonia ?pneumococcus and Influenza B 2. Elevated troponins - probably due to demand ischemia 3. Severe Sepsis with acute organ dysfunction due Pneumonia/Influenza B 4. HTN 5. Acute diastolic HF 6. Glaucoma/Metabolic acidosis/Lactic acidosis/ Hyponatremia/ Hypokalemia/CKD 3. PLAN: * s/p Cath - no intervention per patient - report pend * Cont current meds as below * Cardio/Pulm following * AM labs * Cont to monitor * Cont Tamiflu/Atbx/steroids Review of Systems - Review of Systems Cardiovascular: negative: chest pain, palpitations, orthopnea, paroxysmal nocturnal dyspnea, edema, light headedness Gastrointestinal: negative: Nausea, Vomiting, Abdominal Pain, Diarrhea, Constipation, Melena, Hematochezia - Medications/Allergies Allergies/Adverse Reactions: Allergies Allergy/AdvReac Type Severity Reaction Status Date / Time sulfamethoxazole Allergy Verified 02/27/17 14:39 [From Bactrim] trimethoprim [From Bactrim] Allergy Verified 02/27/17 14:39 Medications: Current Medications Acetaminophen (Tylenol) 650 mg [place] Q4H PRN PRN Reason: Headache/Fever or Pain Acetaminophen (Tylenol) 650 mg PO Q6H PRN PRN Reason: Mild Pain (1-3) Last Admin: 03/01/17 19:05 Dose: 650 mg Acetaminophen/Codeine Phosphate (Tylenol #3) 1 tab PO Q4H PRN PRN Reason: Mild Pain (1-3) Acetaminophen/Codeine Phosphate (Tylenol #3) 2 tab PO Q4H PRN PRN Reason: Moderate Pain (4-6) Albuterol/Ipratropium (Duoneb) 3 ml NEB [id number] [facility] Last Admin: 03/03/17 18:42 Dose: 3 ml Bisoprolol Fumarate (Zebeta) 10 mg PO DAILY [facility] Last Admin: 03/03/17 05:21 Dose: 10 mg Brimonidine Tartrate (Alphagan 0.2% [facility]) 1 drop EA EYE BID [facility] Last Admin: 03/03/17 11:23 Dose: 1 drop Doxycycline Hyclate (Vibramycin) 100 mg PO BID [facility] Last Admin: 03/03/17 11:23 Dose: 100 mg Enoxaparin Sodium (Lovenox) 40 mg SC 0900 [facility] Last Admin: 03/03/17 05:22 Dose: Not Given Fluticasone Propionate (Flonase Nasal [place]) 0 gm NASAL DAILY [facility] Guaifenesin/Dextromethorphan (Robitussin Dm) 5 ml PO Q4H PRN PRN Reason: Cough Last Admin: 03/02/17 20:43 Dose: 5 ml Lisinopril/HCTZ (Prinizide 20-12.5) 1 tab PO DAILY [facility] Last Admin: 03/03/17 05:20 Dose: 1 tab Sodium Chloride (Normal Saline 0.9%) 1,000 mls @ 100 mls/hr IV .Q10H [facility] Last Admin: 03/03/17 11:16 Dose: Not Given Latanoprost (Xalatan 0.005% Ophth Soln) 1 drop EA EYE HS [facility] Last Admin: 03/02/17 21:12 Dose: 1 drop Nitroglycerin (Nitrostat) 0.4 mg PO Q5MIN PRN PRN Reason: Chest Pain Nitroglycerin (Nitrostat) 0.4 mg SL Q5MIN PRN PRN Reason: Chest Pain Ondansetron HCl (Zofran) 4 mg IVP Q6H PRN PRN Reason: Nausea/Vomiting Oseltamivir Phosphate (Tamiflu) 75 mg PO BID [facility] Stop: 03/05/17 21:01 Last Admin: 03/03/17 11:23 Dose: 75 mg Prednisone (Prednisone) 20 mg PO QA-[facility] Last Admin: 03/03/17 05:21 Dose: 20 mg Simethicone (Mylicon Chewable) 80 mg PO PCHS PRN PRN Reason: Gas Pain Last Admin: 03/02/17 20:43 Dose: 80 mg Sodium Chloride (Flush - Normal Saline) 10 ml IVF Q12HR [facility] Last Admin: 03/03/17 05:22 Dose: 10 ml Sodium Chloride (Flush - Normal Saline) 10 ml IVF PRN PRN PRN Reason: Saline Flush Timolol Maleate (Timoptic 0.5% Ophth Soln) 1 drop EA EYE BID [facility] Last Admin: 03/03/17 11:24 Dose: 1 drop Tramadol HCl (Ultram) 50 mg PO Q6H PRN PRN Reason: Moderate Pain (4-6)
[2017-03-03] MEDS: Latanoprost 0.005% Ophth Soln 2.5 ml Bottle EA EYE SCH (21:21)
[2017-03-03] MEDS: Acetaminophen 325 MG TAB PO PRN (22:15)
[2017-03-03] MEDS: Guaifenesin DM 100-10/5 ML UDCUP PO PRN (22:15)
[2017-03-03] MEDS: Simethicone Chewable 80 MG TAB PO PRN (22:27)
[2017-03-04] MEDS: hydrALAZINE 20 MG/ML VIAL SLOW IVP PRN ×3 (00:33→22:05)
[2017-03-04] MEDS: Simethicone Chewable 80 MG TAB PO PRN ×2 (04:56→14:02)
[2017-03-04 04:59] LABS: #Lymphocytes 0.7 thou/uL (1.20-3.40); #Monocytes 0.6 thou/uL (0.11-0.59); #Neutrophils 3.5 thou/uL (1.40-6.50); %Basophils 0.2 % (0.0-1.0); %Eosinophils 0.8 % (0.0-10.0); %Lymphocytes 15.2 % (21.0-51.0); %Monocytes 11.9 % (0.0-10.0); %Neutrophils 71.9 % (42.0-75.0); Hemoglobin 13.2 g/dL (12.0-16.0); Mean Corpuscular HGB CONC 32.4 g/dL (32.0-36.0); Mean Corpuscular Hemoglobin 31.6 pg (27.0-31.0); Mean Corpuscular Volume 97.4 fl (81.0-99.0); Mean Platelet Volume 8.1 fL (7.4-10.4); Platelet Count 130 thou/uL (130-400); RBC Distribution Width 11.8 % (11.5-14.5); Red Blood Cell (RBC) Count 4.18 mill/uL (4.20-5.40); White Blood Cell (WBC) Count 4.8 thou/uL (4.8-10.8)
[2017-03-04 05:29] LABS: ALT (SGPT) 58 U/L (8-55); AST (SGOT) 47 U/L (5-34); Albumin 3.2 g/dL (3.4-4.8); Alkaline Phosphatase 61 U/L (40-150); Anion Gap 10 mmol/L (10-20); BUN (Urea Nitrogen) 23 mg/dL (9.8-20.1); Bilirubin, Total 0.8 mg/dL (0.2-1.2); Calc. Creatinine Clearance 76 mL/min (70-130); Calcium 8.6 mg/dL (7.8-10.44); Carbon Dioxide 33 mmol/L (23-31); Chloride 97 mmol/L (98-107); Estimated GFR-MDRD 87; Globulin 2.2 g/dL (2.4-3.5); Glucose 101 mg/dL (83-110); Magnesium 1.6 mg/dL (1.6-2.6); Phosphorus 2.4 mg/dL (2.3-4.7); Potassium 3.9 mmol/L (3.5-5.1); Protein, Total 5.4 g/dL (6.0-8.3); Sodium 136 mmol/L (136-145)
[2017-03-04] MEDS: Doxycycline 100 MG CAP PO SCH ×2 (08:41→22:03)
[2017-03-04] MEDS: predniSONE 20 MG TAB PO SCH (08:41)
[2017-03-04] MEDS: Oseltamivir 75 MG CAP PO SCH ×2 (08:41→22:03)
[2017-03-04] MEDS: Bisoprolol Fumarate 5 MG TAB PO SCH (08:41)
[2017-03-04] MEDS: Enoxaparin Sodium 40 MG/0.4 ML SYRINGE SC SCH (08:42)
[2017-03-04] MEDS: Lisinopril/Hydrochlorothiazide 20 mg/12.5 mg Tablet PO SCH (08:42)
[2017-03-04] MEDS: Fluticasone Propionate Nasal Spray 16 gm Bottle NASAL SCH (08:42)
[2017-03-04] MEDS: Brimonidine Tartrate 0.2% Ophth Soln 5 ml Bottle EA EYE SCH ×2 (08:43→21:58)
[2017-03-04] MEDS: Timolol 0.5% Ophth Soln 5 ml Bottle EA EYE SCH ×2 (08:43→21:58)
--- NOTE | 2017-03-04 11:02 | PRG ---
DATE OF SERVICE: 03/04/2017 This morning she is awake, alert, responsive. Her cardiac cath apparently was negative as per Cardio logy. PHYSICAL EXAMINATION: VITAL SIGNS: Blood pressure 177/84, elevated. Sats are 94, respirations 18. She is complaining of gas. I's and O's have been 720 in, 950 out. CHEST: Chest reveals decreased breath sounds without any wheezing. CARDIAC: Normal S1, S2. ABDOMEN: Soft, no masses. LABORATORY DATA: White count is normal. Electrolytes are normal. Liver function is improved. IMPRESSION: 1. Congestive heart failure. 2. Pneumonia, improved. PLAN: She probably needs blood pressure better controlled. Hopefully, she can be discharged home in the next 24-48 hours.
[2017-03-04] MEDS: Sodium Chloride 0.9% 1,000 ML IV SCH (12:06)
--- NOTE | 2017-03-04 13:28 | PQF ---
CLINICAL DOCUMENTATION IMPROVEMENT CLARIFICATION FORM: ICD-10 Updated PLEASE DO AN ADDENDUM TO THE PROGRESS NOTE WITH ANY DOCUMENTATION UPDATES OR ADDITIONS AND CARRY THROUGH TO DC SUMMARY. THANK YOU. DATE: 03/04/17 ATTN: Dr. Winchester Please exercise your independent, professional judgment in responding to the clarification form. Clinical indicators are provided on the bottom of this form for your review In addition, please specify: Present on Admission (POA): [ ] Yes [ ] No [ ] Unable to determine Please check appropriate box(s): [ ] Sepsis due to: (Pna, UTI, gangrenous gall bladder, etc.) [ ] Severe sepsis with acute organ dysfunction of: (Examples: respiratory failure, encephalopathy, acute kidney failure, other ) [ ] Other diagnosis [ ] Unable to determine For continuity of documentation, please document condition throughout progress notes and discharge summary. Thank You. CLINICAL INDICATORS - SIGNS / SYMPTOMS / LABS LAB 02/27/17: LACTIC ACID 4.0 H&P: BP 164/89, PULSE 100, RESP. 30 ON BIPAP, O2 SAT WAS 94% ON NONREBREATHER. WHEN SHE FIRST CAME IN, HER O2 SAT WAS 42% ON ROOM AIR PN 03/03: SEPSIS WITH ACUTE ORGAN DYSFUNCTION D/T #1 1. ACUTE HYPOXIC/HYPERCAPNIC RESP. FAILURE D/T PNEUMONIA ?PNEUMOCOCCUS & INFLUENZA B RISKS: H&P: RIGHT-SIDED PNEUMONIA, ACUTE COMBINED RESPIRATORY FAILURE W/ HYPERCAPNIA & HYPOXEMIA TREATMENT: CPOE 02/27/17: ROCEPHIN 2 GM, IVPB 1500. DC'D 03/01. CPOE 02/27/17: ZITHROMAX 500 MG IV 1600. DC'D 03/01. CPOE 03/01/17: DOXYCYCLINE 100 MG PO BID Thank you, Karen (This form is maintained as a part of the permanent medical record) 2014 [employer]. All Rights Reserved Karen Lai, RN, BSN [email or web address] Office: [phone] [facility]
[2017-03-04] MEDS: Acetaminophen 325 MG TAB PO PRN (14:02)
--- NOTE | 2017-03-04 14:52 | PRG ---
DATE OF SERVICE: 03/04/2017 SUBJECTIVE: Ms. Hester is stable. Her blood pressure has been elevated. No chest pain noted. Her shortness of breath is slowly improving. She recently underwent coronary angiography and was not fou nd to have significant coronary disease. OBJECTIVE: VITAL SIGNS: Blood pressure 148/63, pulse 83, temperature afebrile. LUNGS: Rhonchi and rales bilaterally. CARDIAC: Regular rate and rhythm. ABDOMEN: Soft, nontender, nondistended. EXTREMITIES: No edema. IMPRESSION: 1. Elevated troponin. 2. Shortness of breath. 3. Recent viral illness. RECOMMENDATIONS: From a cardiovascular standpoint, Ms. Hester is stable. She had no significant cor onary disease on recent angio. Her LVEDP was mildly elevated at 20. At this point, we would continu e pulmonary support.
--- NOTE | 2017-03-04 17:37 | PDOC.PN ---
- Subjective Encounter Start Date: 03/04/17 Encounter Start Time: 17:36 Patient seen and examined. SOB improving. Cough - dry. No overnight events - Objective MAR Reviewed: Yes Vital Signs & Weight: Vital Signs (12 hours) Temp Pulse Resp BP BP Pulse Ox 03/04/17 16:03 98.0 F 81 18 165/73 H 91 L 03/04/17 13:00 148/63 H 03/04/17 12:36 83 184/84 H 03/04/17 12:31 98.1 F 83 20 184/84 H 91 L 03/04/17 08:43 91 177/84 H 03/04/17 08:42 91 177/84 H 03/04/17 07:15 97.8 F 91 18 94 L 03/04/17 07:10 97.8 F 91 18 177/84 H 94 L 03/04/17 06:40 96 03/04/17 06:39 89 16 Weight Weight 159 lb 2 oz I&O: 03/03/17 03/04/17 03/05/17 06:59 06:59 06:59 Intake Total 720 1540 912 Output Total 1950 1650 1325 Balance -1230 -110 -413 Result Diagrams: 03/04/17 04:26 03/04/17 04:26 EKG Reviewed by me: Yes (Tele SR) Phys Exam - Physical Examination Constitutional: NAD Respiratory: no wheezing, no rhonchi Bibasilar rales Cardiovascular: RRR, no rub Gastrointestinal: soft, non-tender, positive bowel sounds Musculoskeletal: no edema Neurological: moves all 4 limbs Dx/Plan - Plan continue antibiotics, respiratory therapy, out of bed/ambulate, DVT proph w/ lovenox, DVT proph w/SCDs IMPRESSION: 1. Acute hypoxic/hypercapnic respiratory failure due to Pneumonia ?pneumococcus and Influenza B 2. Elevated troponins - probably due to demand ischemia - Cath negative 3. Severe Sepsis with acute organ dysfunction due Pneumonia/Influenza B 4. HTN 5. Acute diastolic HF 6. Glaucoma/Metabolic acidosis/Lactic acidosis/ Hyponatremia/ Hypokalemia/CKD 3. PLAN: * Cont current meds as below * Cardio/Pulm following * BMP in AM * Cont to monitor * Cont Tamiflu/Atbx/steroids * DC planning * DC dunlap in AM * Add Probiotics Laboratory Tests 03/04/17 03/04/17 04:26 04:26 Lactic Acid 1.0 Magnesium 1.6 Review of Systems - Review of Systems Cardiovascular: negative: chest pain, palpitations, orthopnea, paroxysmal nocturnal dyspnea, edema, light headedness Gastrointestinal: Other (gas pains). negative: Nausea, Vomiting, Abdominal Pain , Diarrhea, Constipation, Melena, Hematochezia - Medications/Allergies Allergies/Adverse Reactions: Allergies Allergy/AdvReac Type Severity Reaction Status Date / Time sulfamethoxazole Allergy Verified 02/27/17 14:39 [From Bactrim] trimethoprim [From Bactrim] Allergy Verified 02/27/17 14:39 Medications: Current Medications Acetaminophen (Tylenol) 650 mg [place] Q4H PRN PRN Reason: Headache/Fever or Pain Acetaminophen (Tylenol) 650 mg PO Q6H PRN PRN Reason: Mild Pain (1-3) Last Admin: 03/04/17 14:02 Dose: 650 mg Acetaminophen/Codeine Phosphate (Tylenol #3) 1 tab PO Q4H PRN PRN Reason: Mild Pain (1-3) Acetaminophen/Codeine Phosphate (Tylenol #3) 2 tab PO Q4H PRN PRN Reason: Moderate Pain (4-6) Albuterol/Ipratropium (Duoneb) 3 ml NEB [id number] [facility] Last Admin: 03/04/17 13:37 Dose: 3 ml Bisoprolol Fumarate (Zebeta) 10 mg PO DAILY [facility] Last Admin: 03/04/17 08:41 Dose: 10 mg Brimonidine Tartrate (Alphagan 0.2% [facility]) 1 drop EA EYE BID [facility] Last Admin: 03/04/17 08:43 Dose: 1 drop Doxycycline Hyclate (Vibramycin) 100 mg PO BID [facility] Last Admin: 03/04/17 08:41 Dose: 100 mg Enoxaparin Sodium (Lovenox) 40 mg SC 0900 [facility] Last Admin: 03/04/17 08:42 Dose: 40 mg Fluticasone Propionate (Flonase Nasal [place]) 0 gm NASAL DAILY [facility] Last Admin: 03/04/17 08:42 Dose: 1 spr Guaifenesin/Dextromethorphan (Robitussin Dm) 5 ml PO Q4H PRN PRN Reason: Cough Last Admin: 03/03/17 22:15 Dose: 5 ml Lisinopril/HCTZ (Prinizide 20-12.5) 1 tab PO DAILY [facility] Last Admin: 03/04/17 08:42 Dose: 1 tab Hydralazine HCl (Apresoline) 10 mg SLOW IVP Q4H PRN PRN Reason: SBP >160 Last Admin: 03/04/17 12:36 Dose: 10 mg Latanoprost (Xalatan 0.005% [facility]) 1 drop EA EYE [facility] Last Admin: 03/03/17 21:21 Dose: 1 drop Nitroglycerin (Nitrostat) 0.4 mg PO Q5MIN PRN PRN Reason: Chest Pain Nitroglycerin (Nitrostat) 0.4 mg SL Q5MIN PRN PRN Reason: Chest Pain Ondansetron HCl (Zofran) 4 mg IVP Q6H PRN PRN Reason: Nausea/Vomiting Oseltamivir Phosphate (Tamiflu) 75 mg PO BID [facility] Stop: 03/05/17 21:01 Last Admin: 03/04/17 08:41 Dose: 75 mg Prednisone (Prednisone) 20 mg PO QAM-WM [facility] Last Admin: 03/04/17 08:41 Dose: 20 mg Saccharomyces Boulardii (Florastor) 250 mg PO [facility] Simethicone (Mylicon Chewable) 80 mg PO PCHS PRN PRN Reason: Gas Pain Last Admin: 03/04/17 14:02 Dose: 80 mg Sodium Chloride (Flush - Normal Saline) 10 ml IVF Q12HR [facility] Last Admin: 03/04/17 08:44 Dose: 10 ml Sodium Chloride (Flush - Normal Saline) 10 ml IVF PRN PRN PRN Reason: Saline Flush Last Admin: 03/04/17 00:34 Dose: 10 ml Timolol Maleate (Timoptic 0.5% [facility]) 1 drop EA EYE BID [facility] Last Admin: 03/04/17 08:43 Dose: 1 drop Tramadol HCl (Ultram) 50 mg PO Q6H PRN PRN Reason: Moderate Pain (4-6)
[2017-03-04] MEDS: Saccharomyces boulardii 250 MG CAP PO SCH (22:03)
[2017-03-04] MEDS: guaiFENesin ER 600 MG TAB PO SCH (22:03)
[2017-03-04] MEDS: Latanoprost 0.005% Ophth Soln 2.5 ml Bottle EA EYE SCH (22:25)
[2017-03-05 06:02] LABS: Anion Gap 14 mmol/L (10-20); BUN (Urea Nitrogen) 18 mg/dL (9.8-20.1); Calc. Creatinine Clearance 72 mL/min (70-130); Calcium 9.6 mg/dL (7.8-10.44); Carbon Dioxide 28 mmol/L (23-31); Chloride 97 mmol/L (98-107); Estimated GFR-MDRD 81; Glucose 96 mg/dL (83-110); Potassium 3.9 mmol/L (3.5-5.1); Sodium 135 mmol/L (136-145)
[2017-03-05] MEDS: Timolol 0.5% Ophth Soln 5 ml Bottle EA EYE SCH ×2 (09:02→21:46)
[2017-03-05] MEDS: Brimonidine Tartrate 0.2% Ophth Soln 5 ml Bottle EA EYE SCH ×2 (09:02→21:45)
[2017-03-05] MEDS: Oseltamivir 75 MG CAP PO SCH ×2 (09:03→21:45)
[2017-03-05] MEDS: Enoxaparin Sodium 40 MG/0.4 ML SYRINGE SC SCH (09:03)
[2017-03-05] MEDS: Doxycycline 100 MG CAP PO SCH ×2 (09:03→21:45)
[2017-03-05] MEDS: Lisinopril/Hydrochlorothiazide 20 mg/12.5 mg Tablet PO SCH (09:04)
[2017-03-05] MEDS: Fluticasone Propionate Nasal Spray 16 gm Bottle NASAL SCH (09:04)
[2017-03-05] MEDS: guaiFENesin ER 600 MG TAB PO SCH ×2 (09:04→21:45)
[2017-03-05] MEDS: predniSONE 20 MG TAB PO SCH (09:04)
[2017-03-05] MEDS: Bisoprolol Fumarate 5 MG TAB PO SCH (09:04)
[2017-03-05] MEDS: hydrALAZINE 20 MG/ML VIAL SLOW IVP PRN (10:36)
[2017-03-05] MEDS ORDERED: Losartan 25 MG TAB PO SCH (11:15)
--- NOTE | 2017-03-05 12:48 | PRG ---
DATE OF SERVICE: 03/05/2017 SUBJECTIVE: This morning, she is awake, alert, responsive. She is better. She said she is concerne d about her blood pressure fluctuating. It has remained elevated at 166/71. OBJECTIVE: VITAL SIGNS: Temperature is 98, pulse is 90, sats are 93%. CHEST: Chest reveals decreased breath sounds, no wheezing. CARDIAC: Normal S1, S2. LABORATORY DATA: Electrolytes are normal. IMPRESSION: 1. Right pneumonia. 3. Pleural effusion. 3. Hypertension. PLAN: I have added [place], increase ambulation. She can be discharged home anytime.
[2017-03-05] MEDS ORDERED: cloNIDine 0.1 MG TAB PO PRN (17:31)
--- NOTE | 2017-03-05 17:42 | PDOC.PN ---
- Subjective Encounter Start Date: 03/05/17 Encounter Start Time: 17:00 Patient seen and examined. No new complaints. Overall feeling better. No overnight events - Objective MAR Reviewed: Yes Vital Signs & Weight: Vital Signs (12 hours) Temp Pulse Pulse Pulse Pulse Pulse Resp 03/05/17 17:38 98.1 F 77 18 03/05/17 14:35 84 20 03/05/17 12:10 82 82 84 82 03/05/17 12:00 96.0 F L 76 20 03/05/17 11:00 78 03/05/17 10:36 90 03/05/17 09:04 90 03/05/17 09:02 90 03/05/17 08:08 03/05/17 08:04 90 20 03/05/17 08:00 97.5 F L 94 20 BP BP BP BP BP Pulse Ox Pulse Ox 03/05/17 17:38 160/72 H 93 L 03/05/17 14:35 03/05/17 12:10 169/77 H 152/67 H 185/80 H 170/74 H 94 L 03/05/17 12:00 151/67 H 91 L 03/05/17 11:00 150/67 H 03/05/17 10:36 03/05/17 09:04 03/05/17 09:02 03/05/17 08:08 93 L 03/05/17 08:04 93 L 03/05/17 08:00 187/82 H 92 L Pulse Ox Pulse Ox Pulse Ox 03/05/17 17:38 03/05/17 14:35 03/05/17 12:10 93 L 95 94 L 03/05/17 12:00 03/05/17 11:00 03/05/17 10:36 03/05/17 09:04 03/05/17 09:02 03/05/17 08:08 03/05/17 08:04 03/05/17 08:00 Weight Weight 159 lb 2 oz I&O: 03/04/17 03/05/17 03/06/17 06:59 06:59 06:59 Intake Total 1540 1152 960 Output Total 1650 1550 Balance -110 -398 960 Result Diagrams: 03/04/17 04:26 03/05/17 05:01 EKG Reviewed by me: Yes (Tele SR) Phys Exam - Physical Examination Constitutional: NAD Respiratory: no wheezing, no rales Scat rhonchi Cardiovascular: RRR, no rub Gastrointestinal: soft, non-tender, positive bowel sounds Musculoskeletal: no edema Neurological: moves all 4 limbs Dx/Plan - Plan DVT proph w/lovenox, DVT proph w/SCDs IMPRESSION: 1. Acute hypoxic/hypercapnic respiratory failure due to Pneumonia ?pneumococcus and Influenza B 2. Elevated troponins - probably due to demand ischemia - Cath negative 3. Severe Sepsis with acute organ dysfunction due Pneumonia/Influenza B 4. HTN - uncontrolled. 5. Acute diastolic HF 6. Glaucoma/Metabolic acidosis/Lactic acidosis/ Hyponatremia/ Hypokalemia/CKD 3. PLAN: * Cont Bisoprolol with Losartan/HCTZ * Cont current meds as below * Cardio/Pulm following * Cont to monitor * Cont Tamiflu/Atbx/steroids * DC planning - prob in AM if BP stable Review of Systems - Review of Systems Respiratory: Cough, Dry, SOB with Excertion, Sputum Cardiovascular: negative: chest pain, palpitations, orthopnea, paroxysmal nocturnal dyspnea, edema, light headedness - Medications/Allergies Allergies/Adverse Reactions: Allergies Allergy/AdvReac Type Severity Reaction Status Date / Time sulfamethoxazole Allergy Verified 02/27/17 14:39 [From Bactrim] trimethoprim [From Bactrim] Allergy Verified 02/27/17 14:39 Medications: Current Medications Acetaminophen (Tylenol) 650 mg [place] Q4H PRN PRN Reason: Headache/Fever or Pain Acetaminophen (Tylenol) 650 mg PO Q6H PRN PRN Reason: Mild Pain (1-3) Last Admin: 03/04/17 14:02 Dose: 650 mg Acetaminophen/Codeine Phosphate (Tylenol #3) 1 tab PO Q4H PRN PRN Reason: Mild Pain (1-3) Acetaminophen/Codeine Phosphate (Tylenol #3) 2 tab PO Q4H PRN PRN Reason: Moderate Pain (4-6) Albuterol/Ipratropium (Duoneb) 3 ml NEB [id number] [facility] Last Admin: 03/05/17 14:35 Dose: 3 ml Bisoprolol Fumarate (Zebeta) 10 mg PO DAILY [facility] Last Admin: 03/05/17 09:04 Dose: 10 mg Brimonidine Tartrate (Alphagan 0.2% [facility]) 1 drop EA EYE BID [facility] Last Admin: 03/05/17 09:02 Dose: 1 drop Clonidine (Catapres) 0.1 mg PO Q8H PRN PRN Reason: Systolic BP > 180 Doxycycline Hyclate (Vibramycin) 100 mg PO BID [facility] Last Admin: 03/05/17 09:03 Dose: 100 mg Fluticasone Propionate (Flonase Nasal [place]) 0 gm NASAL DAILY [facility] Last Admin: 03/05/17 09:04 Dose: 1 spr Guaifenesin (Mucinex) 600 mg PO Q12HR [facility] Last Admin: 03/05/17 09:04 Dose: 600 mg Guaifenesin/Dextromethorphan (Robitussin Dm) 5 ml PO Q4H PRN PRN Reason: Cough Last Admin: 03/03/17 22:15 Dose: 5 ml Hydralazine HCl (Apresoline) 10 mg SLOW IVP Q4H PRN PRN Reason: SBP >160 Last Admin: 03/05/17 10:36 Dose: 10 mg Hydrochlorothiazide (Hydrochlorothiazide) 12.5 mg PO DAILY [facility] Latanoprost (Xalatan 0.005% [facility]) 1 drop EA EYE HS [facility] Last Admin: 03/04/17 22:25 Dose: 1 drop Losartan Potassium (Cozaar) 50 mg PO DAILY [facility] Nitroglycerin (Nitrostat) 0.4 mg SL Q5MIN PRN PRN Reason: Chest Pain Ondansetron HCl (Zofran) 4 mg IVP Q6H PRN PRN Reason: Nausea/Vomiting Oseltamivir Phosphate (Tamiflu) 75 mg PO BID [facility] Stop: 03/05/17 21:01 Last Admin: 03/05/17 09:03 Dose: 75 mg Prednisone (Prednisone) 20 mg PO QAM-[facility] Last Admin: 03/05/17 09:04 Dose: 20 mg Saccharomyces Boulardii (Florastor) 250 mg PO HS [facility] Last Admin: 03/04/17 22:03 Dose: 250 mg Simethicone (Mylicon Chewable) 80 mg PO PCHS PRN PRN Reason: Gas Pain Last Admin: 03/04/17 14:02 Dose: 80 mg Sodium Chloride (Flush - Normal Saline) 10 ml IVF Q12HR [facility] Last Admin: 03/05/17 09:03 Dose: 10 ml Sodium Chloride (Flush - Normal Saline) 10 ml IVF PRN PRN PRN Reason: Saline Flush Last Admin: 03/04/17 00:34 Dose: 10 ml Timolol Maleate (Timoptic 0.5% [facility]) 1 drop EA EYE BID [facility] Last Admin: 03/05/17 09:02 Dose: 1 drop Tramadol HCl (Ultram) 50 mg PO Q6H PRN PRN Reason: Moderate Pain (4-6)
[2017-03-05] MEDS: Saccharomyces boulardii 250 MG CAP PO SCH (21:45)
[2017-03-05] MEDS: Latanoprost 0.005% Ophth Soln 2.5 ml Bottle EA EYE SCH (21:46)
[2017-03-06] MEDS: Simethicone Chewable 80 MG TAB PO PRN (03:43)
[2017-03-06] MEDS: Timolol 0.5% Ophth Soln 5 ml Bottle EA EYE SCH (08:13)
[2017-03-06] MEDS: Brimonidine Tartrate 0.2% Ophth Soln 5 ml Bottle EA EYE SCH (08:13)
[2017-03-06] MEDS: Bisoprolol Fumarate 5 MG TAB PO SCH (08:14)
[2017-03-06] MEDS: predniSONE 20 MG TAB PO SCH (08:14)
[2017-03-06] MEDS: guaiFENesin ER 600 MG TAB PO SCH (08:15)
[2017-03-06] MEDS: Doxycycline 100 MG CAP PO SCH (08:15)
[2017-03-06] MEDS: Fluticasone Propionate Nasal Spray 16 gm Bottle NASAL SCH (08:15)
[2017-03-06 08:31] VITALS: TEMP 98.1
[2017-03-06] MEDS ORDERED: Hydrochlorothiazide 25 MG TAB PO SCH (09:00)
[2017-03-06] MEDS ORDERED: Losartan 25 MG TAB PO SCH ×3 (09:00)
--- NOTE | 2017-03-06 09:42 | PRG ---
DATE OF SERVICE: 03/06/2017 This morning she is awake, alert, responsive. She wants to go home. PHYSICAL EXAMINATION: VITAL SIGNS: Sats are 95% on room air, respiratory 20, temperature 98, blood pressure 116/74. CHEST: Chest revealed decreased breath sounds, no wheezing. CARDIAC: Normal S1, S2. ABDOMEN: Soft, no masses. IMPRESSION: 1. Pneumonia. 2. Cath and normal coronaries. 3. Hypertension. PLAN: She can be discharged home on present antibiotic for another several days. Low dose prednison e for a week. She can see me in the office in 2 weeks.
[2017-03-06 16:06] VITALS: BP 167/72
--- NOTE | 2017-03-06 22:17 | DIS ---
DATE OF DISCHARGE: 03/06/2017 DISCHARGE DISPOSITION: Home. FOLLOWUP: 1. Follow up with primary care physician, Dr. Gerardo Cole in 1 week. 2. Follow up with Cardiology, Dr. Madsen, and Dr. Maurer in 2-3 weeks. ALLERGIES: The patient is allergic to BACTRIM. The patient was seen and examined on the day of discharge. Denies any new complaints. No chest pain , shortness of breath, palpitations. DISCHARGE MEDICATIONS: 1. Prednisone taper. 2. Losartan/hydrochlorothiazide 50/12.5 daily. 3. Clonidine as needed. 4. Doxycycline 100 mg twice a day for next 4 days. 5. Bisoprolol 10 mg daily. 6. Timolol/brimonidine eyedrops twice a day. 7. Pepcid 20 mg twice a day for 1 week while on prednisone. 8. Latanoprost eyedrops at bedtime. BRIEF HOSPITAL COURSE: Patient is an 81-year-old female, who presented on 02/27/2017 to the emergenc y room with shortness of breath with productive cough and generalized weakness. Chest x-ray as outpa tient was consistent with pneumonia. Please refer to the history and physical dated 02/27/2017 for f urther details. The patient was admitted to the hospital with the diagnosis of acute hypoxic and hypercapnic respirat ory failure secondary to pneumonia. Her blood gases on admission showed pH of 7.16 with a pCO2 of 64 .8, pO2 of 101.7 on 100% nonrebreather. Influenzae testing was initially negative. However, a respi ratory viral pathogen by NAAT test was consistent with influenza B. She completed Tamiflu during thi s hospital stay. Her blood cultures have been negative. Patient was evaluated by Pulmonary and Card iology. Due to elevated cardiac enzyme maximum of 1.0, patient underwent cardiac catheterization candace t was essentially negative. Official cath report is pending at this time. Echocardiogram showed lef t ventricular ejection fraction 40%-45% with grade 2 diastolic dysfunction, moderate aortic regurgita tion. Overall, patient has been doing well. She will continue steroids with doxycycline for next fe w days as discussed above. She has been cleared by consultants for discharge. FINAL DIAGNOSES: 1. Acute hypoxic/hypercapnic respiratory failure secondary to pneumonia, suspected pneumococcus as w ell as influenza B infection. 2. Elevated troponins, probably secondary to demand ischemia. A catheterization was negative. 3. Severe sepsis with acute organ dysfunction secondary to pneumonia with influenza B. 4. Hypertension. 5. Acute diastolic heart failure, probably precipitated by underlying infectious etiology. Her BNP this admission was 818. 6. Glaucoma. 7. Metabolic acidosis/lactic acidosis. 8. Hyponatremia, improved. 9. Hypokalemia, corrected. 10. Chronic kidney disease, stage 3. 11. Obesity with a BMI 32.1. Plan of care was discussed with the patient in detail. She stated understanding. Total time coordinating the discharge of this patient was 33 minutes.
== END 2017-03-06 15:55 | disposition home or self-care (01) | DRG 871 ==
LOC: ERS 13:59 → IMCU/EMU 17:20 → 2NO 03-03 22:05
PROVIDERS: ADMIT Internal Medicine; ATTEND Internal Medicine
PROC: 4A023N7 Measurement of Cardiac Sampling and Pressure, Left Heart, Percutaneous Approach (ICD-10-PCS; principal; 2017-03-03)
PROC: B2111ZZ Fluoroscopy of Multiple Coronary Arteries using Low Osmolar Contrast (ICD-10-PCS; 2017-03-03)
PROC: B2151ZZ Fluoroscopy of Left Heart using Low Osmolar Contrast (ICD-10-PCS; 2017-03-03)
DX: A41.89 Other specified sepsis (principal); J96.01 Acute respiratory failure with hypoxia; J10.00 Influenza due to other identified influenza virus with unspecified type of pneumonia; I50.31 Acute diastolic (congestive) heart failure; J96.02 Acute respiratory failure with hypercapnia; J90 Pleural effusion, not elsewhere classified; E87.2 Acidosis; I13.0 Hypertensive heart and chronic kidney disease with heart failure and stage 1 through stage 4 chronic kidney disease, or unspecified chronic kidney disease; N18.3 Chronic kidney disease, stage 3 (moderate); I24.8 Other forms of acute ischemic heart disease; E87.1 Hypo-osmolality and hyponatremia; E66.9 Obesity, unspecified; J45.909 Unspecified asthma, uncomplicated; R65.20 Severe sepsis without septic shock; H40.9 Unspecified glaucoma; R74.8 Abnormal levels of other serum enzymes; Z68.32 Body mass index [BMI] 32.0-32.9, adult; Z88.1 Allergy status to other antibiotic agents; Z88.2 Allergy status to sulfonamides; Z88.8 Allergy status to other drugs, medicaments and biological substances; Z90.10 Acquired absence of unspecified breast and nipple; Z85.3 Personal history of malignant neoplasm of breast; Z80.51 Family history of malignant neoplasm of kidney; Z80.8 Family history of malignant neoplasm of other organs or systems; Z80.9 Family history of malignant neoplasm, unspecified
CPT/HCPCS: 36415; 51702; 71045; 80048; 80053; 80076; 81003; 81015; 82274; 82553; 82805; 83605; 83735; 83880; 84100; 84484; 85025; 85610; 87040; 87086; 87633; 93005; 93306; 93458; 93798; 94640; 94660; 96365; 96367; 96375; A4216; C1760; C1769; G8978-GP-CI; G8979-GP-CI; G8980-GP-CI; J0360; J0456; J0696; J1644; J1650; J1940; J7050; J7506; J7620

== ENCOUNTER 2017-03-25 14:37 | Outpatient (CLI) | payer MEDICARE, BC ==
--- NOTE | 2017-03-25 16:13 | RAD ---
PA AND LATERAL CHEST: History: Dyspnea. FINDINGS: Comparison made with exam of 03-01-17. The heart size is enlarged. The lungs are well expanded without focal areas of consolidation, pneumot horax, livier edema, or pleural effusions. There are degenerative changes in the spine. IMPRESSION: No radiographic evidence of acute cardiopulmonary process. POS: OFF
== END 2017-03-25 14:38 | disposition home or self-care (01) ==
LOC: RAD 14:37
PROVIDERS: ATTEND Internal Medicine Pulmonary Disease
DX: R06.00 Dyspnea, unspecified (principal)
CPT/HCPCS: 71046

== ENCOUNTER 2017-10-22 12:28 | Outpatient (CLI) | payer MEDICARE, BC ==
[~2017-10-22 12:28] MED LIST: Iopamidol 370 76% 100 ML VIAL ONE
[2017-10-22 13:15] LABS: Anion Gap 13 mmol/L (10-20); BUN (Urea Nitrogen) 22 mg/dL (9.8-20.1); Calc. Creatinine Clearance 0 mL/min (70-130); Calcium 10.2 mg/dL (7.8-10.44); Carbon Dioxide 25 mmol/L (23-31); Chloride 102 mmol/L (98-107); Estimated GFR-MDRD 66; Glucose 104 mg/dL (83-110); Potassium 4.4 mmol/L (3.5-5.1); Sodium 136 mmol/L (136-145)
[2017-10-22 13:57] LABS: Bilirubin Negative (Negative); Blood, Urine Negative (Negative); Clarity Clear (Clear); Glucose, Urine (Dipstick) Negative (Negative); Leukocyte Negative (Negative); Nitrite Negative (Negative); Protein, Urine (Dipstick) Negative (Neg-Trace); Specific Gravity, Urine 1.015 (1.005-1.030); Urobilinogen 0.2 mg/dL (0.2-1.0)
[2017-10-22 14:26] LABS: Bacteria/HPF Rare-Few HPF (None Seen); RBC/HPF None Seen HPF (0-3); WBC/HPF None Seen HPF (0-3)
--- NOTE | 2017-10-22 16:28 | CT ---
ABDOMEN CT WITH AND WITHOUT CONTRAST PELVIC CT WITH AND WITHOUT CONTRAST: History: Recurrent urinary tract infection. Symptoms x 2 months. Associated pain. Comparison: None. Technique: Abdomen and pelvic CT performed with and without IV contrast. Enteric contrast was not adm inistered. Coronal reformatted images are submitted for interpretation. FINDINGS: ABDOMEN CT: Normal heart size. Minimal calcification of the septum. Visualized aorta has a normal caliber. No per iaortic fat stranding. Nonspecific 4 mm nodule in the middle lobe. Calcification in the right hepatic lobe are noted. The liver, spleen, pancreas, and adrenal glands peres ve appropriate enhancement. No gastrohepatic, retrocrural, or lymphadenopathy. No mesenteric mass, lymphadenopathy, free air or free fluid. Limited evaluation of the alimentary canal due to lack of oral contrast. Gastric mucosa, duodenum, an d multiple normal caliber small bowel loops are noted. The ileocecal junction is normal. Normal calib er appendix. Scattered fecal material in nondistended, nondilated colon. Occasional diverticulum. No evidence of diverticulitis. On the noncontrasted images, there is no evidence of nephrolithiasis. There are subcentimeter hypoden sities in the right renal cortex which are too small to characterize but are statistically favored to be cysts. Symmetric excretion in a normal appearing intrarenal and extrarenal collecting system. No evidence of hydroureter, peritoneal fat stranding or ureterolithiasis. PELVIC CT: No pelvic mass, lymphadenopathy, free air or free fluid. Questionable right ureteral jet. Definite left ureteral jet. Small diverticulum along the posterior r ight aspect of the ureter is noted, measuring 0.7 cm. No obvious masses in the bladder. No lytic or blastic lesions in the osseous structures. IMPRESSION: 1. No evidence of nephrolithiasis or obstructive uropathy. 2. No evidence of abnormal enhancing mass in either kidney. POS: [facility]
== END 2017-10-22 12:29 | disposition home or self-care (01) ==
LOC: SCSCT 12:28
PROVIDERS: ATTEND Urology
DX: N39.0 Urinary tract infection, site not specified (principal); R33.9 Retention of urine, unspecified
CPT/HCPCS: 36415; 74178; 80048; 81001; 87086

== ENCOUNTER 2019-03-17 10:30 | Day surgery (SDC) | payer MEDICARE, BC ==
--- NOTE | 2019-03-21 00:06 | EKG ---
Test Reason : PREOP CARDIOVERSION Blood Pressure : / mmHG Vent. Rate : 066 BPM Atrial Rate : 066 BPM P-R Int : 204 ms QRS Dur : 082 ms QT Int : 422 ms P-R-T Axes : 083 -16 059 degrees QTc Int : 442 ms Sinus rhythm with Premature atrial complexes Low voltage QRS Borderline ECG When compared with ECG of 27-FEB-2017 14:10, Premature atrial complexes are now Present Vent. rate has decreased BY 70 BPM Criteria for Septal infarct are no longer Present ST no longer depressed in Inferior leads ST no longer depressed in Lateral leads T wave inversion no longer evident in Inferior leads Confirmed by Oscar BLISS ([id number]) on 03/21/2019 12:06:21 AM Referred By: JOEY Confirmed By:Oscar BLISS
== END 2019-03-17 12:16 | disposition home or self-care (01) ==
LOC: SDC 10:30
PROVIDERS: ATTEND Internal Medicine Cardiovascular Disease
DX: I48.91 Unspecified atrial fibrillation (principal); Z53.8 Procedure and treatment not carried out for other reasons; Z79.01 Long term (current) use of anticoagulants; Z79.899 Other long term (current) drug therapy; Z88.2 Allergy status to sulfonamides; Z88.8 Allergy status to other drugs, medicaments and biological substances
CPT/HCPCS: 93005; 93010

== ENCOUNTER 2022-09-24 19:26 | Inpatient (IN) | payer MEDICARE, BC ==
[2022-09-24 22:22] VITALS: BMI 34.7
[2022-09-24] MEDS ORDERED: Acetaminophen 650 MG Suppository PR PRN (23:43)
[2022-09-24] MEDS ORDERED: Ondansetron PF 4 MG/2 ML Vial IVP PRN (23:43)
[2022-09-24] MEDS ORDERED: Ondansetron ODT 4 MG TAB PO PRN (23:43)
[2022-09-24] MEDS ORDERED: Electrolyte Replacement Protocol 1 EACH FS PRN (23:45)
[2022-09-25 04:51] LABS: #Basophils 0.1 thou/uL (0.0-0.2); #Eosinphils 0.2 thou/uL (0.0-0.7); #Monocytes 0.6 thou/uL (0.11-0.59); #Neutrophils 7.2 thou/uL (1.40-6.50); %Basophils 0.6 % (0.0-1.0); %Eosinophils 1.9 % (0.0-10.0); %Lymphocytes 12.8 % (21.0-51.0); %Monocytes 6.4 % (0.0-10.0); %Neutrophils 77.9 % (42.0-75.0); Hematocrit 32.7 % (36.0-47.0); Hemoglobin 9.7 g/dL (12.0-16.0); Mean Corpuscular Hemoglobin 24.7 pg (27.0-31.0); Mean Corpuscular Volume 83.2 fl (78.0-98.0); Mean Platelet Volume 11.4 fL (7.4-10.4); Platelet Count 244 10x3/uL (130-400); Red Blood Cell (RBC) Count 3.93 mill/uL (4.20-5.40); White Blood Cell (WBC) Count 9.3 10x3/uL (4.8-10.8)
[2022-09-25 05:03] LABS: Mean Corpuscular HGB CONC 29.7 g/dL (32.0-36.0); RBC Distribution Width 17.9 % (11.5-14.5)
[2022-09-25 05:13] LABS: Anion Gap 15 mmol/L (10-20); BUN (Urea Nitrogen) 32 mg/dL (9.8-20.1); Calc. Creatinine Clearance 56 mL/min (70-130); Calcium 9.2 mg/dL (7.8-10.44); Carbon Dioxide 26 mmol/L (23-31); Chloride 100 mmol/L (98-107); Estimated GFR 64; Glucose 102 mg/dL (83-110); Iron 23 ug/dL (50-170); Iron Binding Capacity, Total 478 mcg/dL (265-497); Magnesium 1.9 mg/dL (1.6-2.6); Potassium 4.1 mmol/L (3.5-5.1); Sodium 137 mmol/L (136-145)
[2022-09-25] MEDS ORDERED: Furosemide 40 MG/4 ML VIAL SLOW IVP SCH (06:00)
[2022-09-25] MEDS ORDERED: Magnesium 2 GM/50 ML(in water) 2 GM in Premix Bag 1 BAG IVPB SCH (08:00)
[2022-09-25] MEDS ORDERED: dilTIAZem 125 MG in Sodium Chloride 0.9% 100 ML IVPB SCH (09:15)
[2022-09-25 16:51] LABS: Bacteria/HPF None Seen HPF (None Seen); Bilirubin Negative (Negative); Blood, Urine Negative (Negative); Clarity Clear (Clear); Glucose, Urine (Dipstick) Normal (Negative); Ketone, Urine Negative (Negative); Leukocyte Negative Leu/uL (Negative); Nitrite Negative (Negative); Protein, Urine (Dipstick) Negative (Neg-Trace); RBC/HPF 0-3 HPF (0-3); Specific Gravity, Urine 1.013 (1.002-1.036); Squamous Epithelial 0-3 HPF (0-3); Urobilinogen Normal mg/dL (Less than 2); WBC/HPF 0-3 HPF (0-3)
[2022-09-25] MEDS: Digoxin 0.5 MG/2 ML AMP SLOW IVP SCH ×2 (17:18→22:45)
[2022-09-25] MEDS: Apixaban 5 MG TAB PO SCH (20:35)
[2022-09-25] MEDS: Brimonidine Tartrate 0.2% Ophth Soln 5 ml Bottle EA EYE SCH (20:35)
[2022-09-25] MEDS: Timolol 0.5% Ophth Soln 5 ml Bottle EA EYE SCH (20:36)
[2022-09-25] MEDS: Latanoprost 0.005% Ophth Soln 2.5 ml Bottle EA EYE SCH (20:36)
[2022-09-26 04:24] LABS: #Eosinphils 0.2 thou/uL (0.0-0.7); #Monocytes 0.5 thou/uL (0.11-0.59); #Neutrophils 7.6 thou/uL (1.40-6.50); %Basophils 0.4 % (0.0-1.0); %Eosinophils 1.9 % (0.0-10.0); %Lymphocytes 9.2 % (21.0-51.0); %Monocytes 5.7 % (0.0-10.0); %Neutrophils 82.5 % (42.0-75.0); Hematocrit 30.3 % (36.0-47.0); Hemoglobin 9.1 g/dL (12.0-16.0); Mean Corpuscular Hemoglobin 24.7 pg (27.0-31.0); Mean Corpuscular Volume 82.1 fl (78.0-98.0); Mean Platelet Volume 11.2 fL (7.4-10.4); Platelet Count 232 10x3/uL (130-400); RBC Distribution Width 17.6 % (11.5-14.5); Red Blood Cell (RBC) Count 3.69 mill/uL (4.20-5.40); White Blood Cell (WBC) Count 9.3 10x3/uL (4.8-10.8)
[2022-09-26 05:01] LABS: Anion Gap 11 mmol/L (10-20); BUN (Urea Nitrogen) 42 mg/dL (9.8-20.1); Calc. Creatinine Clearance 50 mL/min (70-130); Calcium 8.9 mg/dL (7.8-10.44); Carbon Dioxide 33 mmol/L (23-31); Chloride 97 mmol/L (98-107); Estimated GFR 57; Glucose 114 mg/dL (83-110); Magnesium 2.4 mg/dL (1.6-2.6); Sodium 137 mmol/L (136-145)
[2022-09-26] MEDS: Digoxin 0.5 MG/2 ML AMP SLOW IVP SCH (05:13)
[2022-09-26] MEDS ORDERED: Furosemide 40 MG/4 ML VIAL SLOW IVP SCH (06:00)
[2022-09-26] MEDS: dilTIAZem CD 180 MG CAP PO SCH (08:44)
[2022-09-26] MEDS: Apixaban 5 MG TAB PO SCH ×2 (08:44→20:07)
[2022-09-26] MEDS: Brimonidine Tartrate 0.2% Ophth Soln 5 ml Bottle EA EYE SCH ×2 (08:45→20:20)
[2022-09-26] MEDS: Timolol 0.5% Ophth Soln 5 ml Bottle EA EYE SCH ×2 (08:46→20:08)
[2022-09-26] MEDS ORDERED: Loperamide HCl 2 MG CAP PO PRN (10:47)
[2022-09-26] MEDS: Latanoprost 0.005% Ophth Soln 2.5 ml Bottle EA EYE SCH (20:14)
[2022-09-26] MEDS: Acetaminophen 325 MG TAB PO PRN (22:24)
[2022-09-27] MEDS: Acetaminophen 325 MG TAB PO PRN ×2 (08:59→21:25)
[2022-09-27] MEDS: Apixaban 5 MG TAB PO SCH ×2 (08:59→21:19)
[2022-09-27] MEDS: dilTIAZem CD 180 MG CAP PO SCH (08:59)
[2022-09-27] MEDS: Brimonidine Tartrate 0.2% Ophth Soln 5 ml Bottle EA EYE SCH ×2 (09:01→21:18)
[2022-09-27] MEDS: Timolol 0.5% Ophth Soln 5 ml Bottle EA EYE SCH ×2 (09:01→21:29)
[2022-09-27] MEDS ORDERED: Bisacodyl 5 MG TAB PO PRN (20:26)
[2022-09-27] MEDS: Latanoprost 0.005% Ophth Soln 2.5 ml Bottle EA EYE SCH (21:24)
[2022-09-28] MEDS: Acetaminophen 325 MG TAB PO PRN ×2 (03:25→20:21)
[2022-09-28 04:19] LABS: #Basophils 0.1 thou/uL (0.0-0.2); #Eosinphils 0.2 thou/uL (0.0-0.7); #Neutrophils 6.3 thou/uL (1.40-6.50); %Basophils 0.7 % (0.0-1.0); %Eosinophils 1.8 % (0.0-10.0); %Monocytes 11.4 % (0.0-10.0); %Neutrophils 72.5 % (42.0-75.0); Hematocrit 30.9 % (36.0-47.0); Hemoglobin 9.2 g/dL (12.0-16.0); Mean Corpuscular HGB CONC 29.8 g/dL (32.0-36.0); Mean Corpuscular Hemoglobin 24.1 pg (27.0-31.0); Mean Corpuscular Volume 81.1 fl (78.0-98.0); Mean Platelet Volume 10.8 fL (7.4-10.4); Platelet Count 220 10x3/uL (130-400); RBC Distribution Width 17.3 % (11.5-14.5); Red Blood Cell (RBC) Count 3.81 mill/uL (4.20-5.40); White Blood Cell (WBC) Count 8.8 10x3/uL (4.8-10.8)
[2022-09-28 04:44] LABS: Anion Gap 13 mmol/L (10-20); BUN (Urea Nitrogen) 40 mg/dL (9.8-20.1); Calc. Creatinine Clearance 55 mL/min (70-130); Calcium 8.7 mg/dL (7.8-10.44); Carbon Dioxide 28 mmol/L (23-31); Chloride 98 mmol/L (98-107); Estimated GFR 64; Glucose 101 mg/dL (83-110); Magnesium 2.2 mg/dL (1.6-2.6); Potassium 4.2 mmol/L (3.5-5.1); Sodium 135 mmol/L (136-145)
[2022-09-28] MEDS: Apixaban 5 MG TAB PO SCH ×2 (10:05→20:21)
[2022-09-28] MEDS: dilTIAZem CD 180 MG CAP PO SCH (10:05)
[2022-09-28] MEDS: Brimonidine Tartrate 0.2% Ophth Soln 5 ml Bottle EA EYE SCH ×2 (10:08→20:22)
[2022-09-28] MEDS: Timolol 0.5% Ophth Soln 5 ml Bottle EA EYE SCH ×2 (10:08→20:22)
[2022-09-28] MEDS: Latanoprost 0.005% Ophth Soln 2.5 ml Bottle EA EYE SCH (20:22)
[2022-09-29] MEDS: Acetaminophen 325 MG TAB PO PRN ×2 (03:15→10:03)
[2022-09-29] MEDS: Timolol 0.5% Ophth Soln 5 ml Bottle EA EYE SCH (08:55)
[2022-09-29] MEDS: Brimonidine Tartrate 0.2% Ophth Soln 5 ml Bottle EA EYE SCH (08:55)
[2022-09-29] MEDS: dilTIAZem CD 180 MG CAP PO SCH (08:56)
[2022-09-29] MEDS: Apixaban 5 MG TAB PO SCH (08:56)
[2022-09-29 12:04] VITALS: BP 113/59; TEMP 97.3
== END 2022-09-29 15:43 | DRG 291 ==
LOC: 2NO 21:10
PROVIDERS: ADMIT Hospitalist; ATTEND Internal Medicine
DX: I11.0 Hypertensive heart disease with heart failure (principal); I50.33 Acute on chronic diastolic (congestive) heart failure; J96.01 Acute respiratory failure with hypoxia; I48.20 Chronic atrial fibrillation, unspecified; E87.1 Hypo-osmolality and hyponatremia; E87.3 Alkalosis; Z66 Do not resuscitate; H40.9 Unspecified glaucoma; E83.42 Hypomagnesemia; E66.9 Obesity, unspecified; Z88.2 Allergy status to sulfonamides; Z88.8 Allergy status to other drugs, medicaments and biological substances; Z79.899 Other long term (current) drug therapy; Z90.12 Acquired absence of left breast and nipple; Z98.49 Cataract extraction status, unspecified eye; Z90.710 Acquired absence of both cervix and uterus; Z90.49 Acquired absence of other specified parts of digestive tract; Z68.34 Body mass index [BMI] 34.0-34.9, adult; D63.8 Anemia in other chronic diseases classified elsewhere

== ENCOUNTER 2023-01-12 03:41 | Inpatient (IN) | payer MEDICARE, BC ==
[2023-01-12] MEDS ORDERED: fentaNYL 50 mcg/mL 1 mL Vial ONE (04:15)
[2023-01-12 05:05] LABS: #Basophils 0.1 thou/uL (0.0-0.2); #Monocytes 1.1 thou/uL (0.11-0.59); #Neutrophils 7.2 thou/uL (1.40-6.50); %Basophils 0.5 % (0.0-1.0); %Eosinophils 0.3 % (0.0-10.0); %Lymphocytes 12.3 % (21.0-51.0); %Monocytes 11.5 % (0.0-10.0); %Neutrophils 74.6 % (42.0-75.0); Hematocrit 32.1 % (36.0-47.0); Hemoglobin 9.4 g/dL (12.0-16.0); Mean Corpuscular HGB CONC 29.3 g/dL (32.0-36.0); Mean Corpuscular Hemoglobin 25.1 pg (27.0-31.0); Mean Corpuscular Volume 85.6 fl (78.0-98.0); Mean Platelet Volume 9.5 fL (7.4-10.4); Platelet Count 281 10x3/uL (130-400); RBC Distribution Width 17.5 % (11.5-14.5); Red Blood Cell (RBC) Count 3.75 mill/uL (4.20-5.40); White Blood Cell (WBC) Count 9.7 10x3/uL (4.8-10.8)
[2023-01-12 05:08] LABS: Bacteria/HPF 4+ HPF (None Seen); Bilirubin Negative (Negative); Blood, Urine 2+ (Negative); CAUTI Indications for Culture Pelvic or flank pain; Clarity Extra Turbid (Clear); Glucose, Urine (Dipstick) 300 mg/dL (Negative); Ketone, Urine Negative (Negative); Leukocyte 500 Leu/uL (Negative); Nitrite Negative (Negative); Protein, Urine (Dipstick) 70 mg/dL (Neg-Trace); Specific Gravity, Urine 1.014 (1.002-1.036); WBC/HPF Greater than 50 HPF (0-3); pH, Urine 5.5 (5.0-9.0)
[2023-01-12 05:11] LABS: Urine Culture Reflex Yes Yes
[2023-01-12 05:15] LABS: INR-International Normal Ratio 2.7; Prothrombin Time 30.1 sec (12.0-14.7)
[2023-01-12 05:16] LABS: PTT 51.4 sec (22.9-36.1)
[2023-01-12 05:25] LABS: ALT (SGPT) 10 U/L (8-55); AST (SGOT) 17 U/L (5-34); Albumin 3.2 g/dL (3.4-4.8); Alkaline Phosphatase 68 U/L (40-110); Anion Gap 15 mmol/L (10-20); BUN (Urea Nitrogen) 47 mg/dL (9.8-20.1); Bilirubin, Total 0.4 mg/dL (0.2-1.2); Calc. Creatinine Clearance 0 mL/min (70-130); Calcium 8.9 mg/dL (7.8-10.44); Carbon Dioxide 28 mmol/L (23-31); Chloride 100 mmol/L (98-107); Estimated GFR 37; Globulin 3.5 g/dL (2.4-3.5); Glucose 112 mg/dL (83-110); Magnesium 2.3 mg/dL (1.6-2.6); Potassium 4.1 mmol/L (3.5-5.1); Protein, Total 6.7 g/dL (5.8-8.1); Sodium 139 mmol/L (136-145)
[2023-01-12 05:29] LABS: Troponin I 0.033 ng/mL (< 0.028)
[2023-01-12] MEDS ORDERED: cefTRIAXone (ROCEPHIN) 1 GM VIAL ONE (05:58)
[2023-01-12] MEDS ORDERED: Sodium Chloride 0.9% 100 ML ONE (05:58)
[2023-01-12] MEDS ORDERED: Furosemide 40 MG/4 ML VIAL ONE (05:58)
[2023-01-12 08:34] LABS: Troponin I 0.019 ng/mL (< 0.028)
[2023-01-12] MEDS ORDERED: Acetaminophen 650 MG Suppository PR PRN (10:18)
[2023-01-12] MEDS ORDERED: Ondansetron PF 4 MG/2 ML Vial IVP PRN (10:18)
[2023-01-12] MEDS ORDERED: Ondansetron ODT 4 MG TAB PO PRN (10:18)
[2023-01-12] MEDS ORDERED: Morphine 2 MG/ML VIAL SLOW IVP PRN (10:38)
[2023-01-12] MEDS: Acetaminophen 325 MG TAB PO PRN ×2 (12:57→18:53)
[2023-01-12 16:01] LABS: Troponin I 0.016 ng/mL (< 0.028)
[2023-01-12] MEDS ORDERED: FLU VACC QS2023(65UP)/MF59C/PF 60 MCG/0.5 ML SYRINGE IM ONE (18:00)
[2023-01-13] MEDS: Morphine 2 MG/ML VIAL SLOW IVP PRN ×2 (01:33→06:30)
[2023-01-13] MEDS ORDERED: Furosemide 40 MG/4 ML VIAL SLOW IVP SCH (06:00)
[2023-01-13 06:26] VITALS: BMI 34.9
[2023-01-13] MEDS: cefTRIAXone\\ROCEPHIN 1 GM in Sodium Chloride 0.9% 100 ML IVPB SCH (06:30)
[2023-01-13 09:23] LABS: #Eosinphils 0.1 thou/uL (0.0-0.7); #Monocytes 0.7 thou/uL (0.11-0.59); #Neutrophils 6.7 thou/uL (1.40-6.50); %Basophils 0.5 % (0.0-1.0); %Eosinophils 0.8 % (0.0-10.0); %Lymphocytes 11.8 % (21.0-51.0); %Monocytes 8.1 % (0.0-10.0); %Neutrophils 78.1 % (42.0-75.0); Hematocrit 32.8 % (36.0-47.0); Hemoglobin 9.8 g/dL (12.0-16.0); Mean Corpuscular HGB CONC 29.9 g/dL (32.0-36.0); Mean Platelet Volume 9.8 fL (7.4-10.4); Platelet Count 271 10x3/uL (130-400); RBC Distribution Width 17.2 % (11.5-14.5); Red Blood Cell (RBC) Count 3.77 mill/uL (4.20-5.40); White Blood Cell (WBC) Count 8.5 10x3/uL (4.8-10.8)
[2023-01-13 09:49] LABS: ALT (SGPT) 7 U/L (8-55); AST (SGOT) 15 U/L (5-34); Albumin 3.2 g/dL (3.4-4.8); Alkaline Phosphatase 72 U/L (40-110); Anion Gap 15 mmol/L (10-20); BUN (Urea Nitrogen) 50 mg/dL (9.8-20.1); Bilirubin, Total 0.3 mg/dL (0.2-1.2); Calc. Creatinine Clearance 35 mL/min (70-130); Calcium 8.8 mg/dL (7.8-10.44); Carbon Dioxide 27 mmol/L (23-31); Chloride 100 mmol/L (98-107); Estimated GFR 35; Globulin 3.2 g/dL (2.4-3.5); Glucose 109 mg/dL (83-110); Potassium 4.2 mmol/L (3.5-5.1); Protein, Total 6.4 g/dL (5.8-8.1); Sodium 138 mmol/L (136-145)
[2023-01-13] MEDS ORDERED: Furosemide 20 MG TAB PO PRN (10:02)
[2023-01-13] MEDS: Timolol 0.5% Ophth Soln 5 ml Bottle EA EYE SCH ×2 (11:30→20:54)
[2023-01-13] MEDS: Brimonidine Tartrate 0.2% Ophth Soln 5 ml Bottle EA EYE SCH ×2 (11:31→20:54)
[2023-01-13] MEDS: Acetaminophen/Codeine 30-300mg Tablet PO PRN ×2 (11:31→18:02)
[2023-01-13] MEDS: HYDROcodone/Acetaminophen 5/325 mg Tablet PO PRN (13:45)
[2023-01-13] MEDS: tiZANidine HCl 4 MG TAB PO PRN (15:57)
[2023-01-13] MEDS: Acetaminophen 325 MG TAB PO PRN (15:57)
[2023-01-13] MEDS: Apixaban 5 MG TAB PO SCH (20:53)
[2023-01-14] MEDS: Acetaminophen 325 MG TAB PO PRN ×3 (03:29→22:32)
[2023-01-14 06:15] LABS: #Eosinphils 0.2 thou/uL (0.0-0.7); #Neutrophils 5.8 thou/uL (1.40-6.50); %Basophils 0.5 % (0.0-1.0); %Eosinophils 2.1 % (0.0-10.0); %Lymphocytes 13.3 % (21.0-51.0); %Monocytes 12.1 % (0.0-10.0); %Neutrophils 71.4 % (42.0-75.0); Hematocrit 31.7 % (36.0-47.0); Hemoglobin 9.2 g/dL (12.0-16.0); Mean Corpuscular Hemoglobin 25.3 pg (27.0-31.0); Mean Corpuscular Volume 87.3 fl (78.0-98.0); Mean Platelet Volume 9.8 fL (7.4-10.4); Platelet Count 267 10x3/uL (130-400); RBC Distribution Width 17.2 % (11.5-14.5); Red Blood Cell (RBC) Count 3.63 mill/uL (4.20-5.40); White Blood Cell (WBC) Count 8.2 10x3/uL (4.8-10.8)
[2023-01-14] MEDS: cefTRIAXone\\ROCEPHIN 1 GM in Sodium Chloride 0.9% 100 ML IVPB SCH (06:29)
[2023-01-14 06:44] LABS: Anion Gap 15 mmol/L (10-20); BUN (Urea Nitrogen) 52 mg/dL (9.8-20.1); Calc. Creatinine Clearance 38 mL/min (70-130); Calcium 8.5 mg/dL (7.8-10.44); Carbon Dioxide 25 mmol/L (23-31); Chloride 97 mmol/L (98-107); Estimated GFR 39; Glucose 78 mg/dL (83-110); Potassium 4.4 mmol/L (3.5-5.1); Sodium 133 mmol/L (136-145)
[2023-01-14] MEDS: Apixaban 5 MG TAB PO SCH ×2 (09:51→20:31)
[2023-01-14] MEDS: Timolol 0.5% Ophth Soln 5 ml Bottle EA EYE SCH ×2 (09:51→20:31)
[2023-01-14] MEDS: Brimonidine Tartrate 0.2% Ophth Soln 5 ml Bottle EA EYE SCH ×2 (09:51→20:31)
[2023-01-14] MEDS: Furosemide 20 MG TAB PO SCH (09:51)
[2023-01-15] MEDS: Acetaminophen/Codeine 30-300mg Tablet PO PRN (02:14)
[2023-01-15] MEDS: cefTRIAXone\\ROCEPHIN 1 GM in Sodium Chloride 0.9% 100 ML IVPB SCH (05:53)
[2023-01-15] MEDS: Acetaminophen 325 MG TAB PO PRN (08:24)
[2023-01-15] MEDS: Timolol 0.5% Ophth Soln 5 ml Bottle EA EYE SCH ×2 (08:25→20:38)
[2023-01-15] MEDS: Brimonidine Tartrate 0.2% Ophth Soln 5 ml Bottle EA EYE SCH ×2 (08:25→20:38)
[2023-01-15] MEDS: Apixaban 5 MG TAB PO SCH ×2 (08:25→20:38)
[2023-01-15] MEDS: Furosemide 20 MG TAB PO SCH (08:25)
[2023-01-15] MEDS: Cefdinir 300 MG CAP PO SCH ×2 (08:25→20:38)
[2023-01-15] MEDS ORDERED: dilTIAZem 25 MG/5 ML VIAL SLOW IVP SCH (08:45)
[2023-01-15] MEDS ORDERED: dilTIAZem ER 60 MG CAP PO SCH (09:15)
[2023-01-15] MEDS: dilTIAZem 125 MG in Sodium Chloride 0.9% 100 ML IVPB SCH ×2 (09:48→21:55)
[2023-01-15] MEDS: Digoxin 0.5 MG/2 ML AMP SLOW IVP SCH ×3 (10:45→22:57)
[2023-01-15] MEDS: dilTIAZem 30 MG TAB PO SCH ×2 (13:06→17:08)
[2023-01-15] MEDS: HYDROcodone/Acetaminophen 5/325 mg Tablet PO PRN (21:56)
[2023-01-16] MEDS: dilTIAZem 30 MG TAB PO SCH ×4 (00:10→17:30)
[2023-01-16] MEDS: tiZANidine HCl 4 MG TAB PO PRN (05:54)
[2023-01-16] MEDS: Furosemide 20 MG TAB PO SCH (09:51)
[2023-01-16] MEDS: Apixaban 5 MG TAB PO SCH ×2 (09:51→20:37)
[2023-01-16] MEDS: Cefdinir 300 MG CAP PO SCH ×2 (09:51→20:37)
[2023-01-16] MEDS: Brimonidine Tartrate 0.2% Ophth Soln 5 ml Bottle EA EYE SCH ×2 (09:53→20:38)
[2023-01-16] MEDS: Timolol 0.5% Ophth Soln 5 ml Bottle EA EYE SCH ×2 (09:53→20:38)
[2023-01-16] MEDS: Acetaminophen 325 MG TAB PO PRN ×2 (10:03→17:42)
[2023-01-16 10:59] LABS: #Eosinphils 0.1 thou/uL (0.0-0.7); #Monocytes 0.8 thou/uL (0.11-0.59); #Neutrophils 6.3 thou/uL (1.40-6.50); %Basophils 0.5 % (0.0-1.0); %Lymphocytes 10.5 % (21.0-51.0); %Monocytes 9.7 % (0.0-10.0); %Neutrophils 75.2 % (42.0-75.0); Hematocrit 29.4 % (36.0-47.0); Hemoglobin 8.5 g/dL (12.0-16.0); Mean Corpuscular HGB CONC 28.9 g/dL (32.0-36.0); Mean Corpuscular Hemoglobin 25.2 pg (27.0-31.0); Mean Corpuscular Volume 87.2 fl (78.0-98.0); Mean Platelet Volume 9.5 fL (7.4-10.4); Platelet Count 324 10x3/uL (130-400); RBC Distribution Width 17.2 % (11.5-14.5); Red Blood Cell (RBC) Count 3.37 mill/uL (4.20-5.40); White Blood Cell (WBC) Count 8.4 10x3/uL (4.8-10.8)
[2023-01-16 11:27] LABS: Anion Gap 14 mmol/L (10-20); BUN (Urea Nitrogen) 51 mg/dL (9.8-20.1); Calc. Creatinine Clearance 49 mL/min (70-130); Calcium 8.6 mg/dL (7.8-10.44); Carbon Dioxide 26 mmol/L (23-31); Chloride 102 mmol/L (98-107); Estimated GFR 53; Glucose 91 mg/dL (83-110); Magnesium 2.5 mg/dL (1.6-2.6); Potassium 4.6 mmol/L (3.5-5.1); Sodium 137 mmol/L (136-145)
[2023-01-16] MEDS: Guaifenesin DM 100-10/5 ML UDCUP PO PRN ×3 (11:39→20:37)
[2023-01-16 11:42] LABS: Platelet Adequacy Comment Platelets Normal; Polychromasia SLIGHT = 2-3 cells (100X) (0-2/hpf)
[2023-01-16] MEDS: Acetaminophen/Codeine 30-300mg Tablet PO PRN (20:37)
[2023-01-17] MEDS: dilTIAZem 30 MG TAB PO SCH ×5 (00:26→23:58)
[2023-01-17] MEDS: Guaifenesin DM 100-10/5 ML UDCUP PO PRN ×2 (03:24→09:49)
[2023-01-17] MEDS: Acetaminophen/Codeine 30-300mg Tablet PO PRN ×2 (03:25→09:50)
[2023-01-17 03:51] LABS: #Monocytes 0.6 thou/uL (0.11-0.59); #Neutrophils 6.5 thou/uL (1.40-6.50); %Basophils 0.2 % (0.0-1.0); %Eosinophils 0.4 % (0.0-10.0); %Lymphocytes 11.8 % (21.0-51.0); %Monocytes 7.2 % (0.0-10.0); %Neutrophils 78.7 % (42.0-75.0); Hematocrit 29.5 % (36.0-47.0); Hemoglobin 8.7 g/dL (12.0-16.0); Mean Corpuscular HGB CONC 29.5 g/dL (32.0-36.0); Mean Corpuscular Hemoglobin 25.7 pg (27.0-31.0); Mean Platelet Volume 9.4 fL (7.4-10.4); Platelet Count 335 10x3/uL (130-400); RBC Distribution Width 17.2 % (11.5-14.5); Red Blood Cell (RBC) Count 3.39 mill/uL (4.20-5.40); White Blood Cell (WBC) Count 8.2 10x3/uL (4.8-10.8)
[2023-01-17 04:23] LABS: Anion Gap 14 mmol/L (10-20); BUN (Urea Nitrogen) 51 mg/dL (9.8-20.1); Calc. Creatinine Clearance 47 mL/min (70-130); Calcium 8.5 mg/dL (7.8-10.44); Carbon Dioxide 26 mmol/L (23-31); Chloride 103 mmol/L (98-107); Estimated GFR 51; Glucose 113 mg/dL (83-110); Magnesium 2.5 mg/dL (1.6-2.6); Potassium 4.4 mmol/L (3.5-5.1); Sodium 139 mmol/L (136-145)
[2023-01-17] MEDS: Cefdinir 300 MG CAP PO SCH ×2 (09:46→23:58)
[2023-01-17] MEDS: Apixaban 5 MG TAB PO SCH ×2 (09:46→23:58)
[2023-01-17] MEDS: Furosemide 20 MG TAB PO SCH (09:46)
[2023-01-17] MEDS: Brimonidine Tartrate 0.2% Ophth Soln 5 ml Bottle EA EYE SCH ×2 (09:52→23:59)
[2023-01-17] MEDS: Timolol 0.5% Ophth Soln 5 ml Bottle EA EYE SCH ×2 (09:52→23:58)
[2023-01-17] MEDS ORDERED: Furosemide 20 MG/2 ML VIAL SLOW IVP SCH (12:30)
[2023-01-17] MEDS: Ipratropium/Albuterol 3 ML NEB IPPB SCH ×3 (14:27→23:50)
[2023-01-17] MEDS ORDERED: Scopolamine 1 mg/72 hour Patch TD SCH (18:00)
[2023-01-18 04:35] LABS: Hematocrit 29.5 % (36.0-47.0); Hemoglobin 8.5 g/dL (12.0-16.0); Manual Diff?? YES; Mean Corpuscular HGB CONC 28.8 g/dL (32.0-36.0); Mean Corpuscular Hemoglobin 24.8 pg (27.0-31.0); Mean Platelet Volume 9.7 fL (7.4-10.4); Platelet Count 395 10x3/uL (130-400); RBC Distribution Width 17.2 % (11.5-14.5); Red Blood Cell (RBC) Count 3.43 mill/uL (4.20-5.40); White Blood Cell (WBC) Count 12.5 10x3/uL (4.8-10.8)
[2023-01-18 04:45] LABS: Delete Auto Diff?? YES
[2023-01-18 05:08] LABS: Anion Gap 17 mmol/L (10-20); BUN (Urea Nitrogen) 63 mg/dL (9.8-20.1); Calc. Creatinine Clearance 31 mL/min (70-130); Calcium 8.7 mg/dL (7.8-10.44); Carbon Dioxide 26 mmol/L (23-31); Chloride 104 mmol/L (98-107); Estimated GFR 30; Glucose 106 mg/dL (83-110); Magnesium 2.6 mg/dL (1.6-2.6); Potassium 4.8 mmol/L (3.5-5.1); Sodium 142 mmol/L (136-145)
[2023-01-18] MEDS: dilTIAZem 30 MG TAB PO SCH ×3 (05:35→18:06)
[2023-01-18 06:01] LABS: Anisocytosis SLIGHT = 6-15 cells HPF (0-5); Band 24 % (5-11); CellaVision Operator ID lab.abc; Hypochromia SLIGHT = 6-15 cells HPF (0-5); Large Platelets 4.9 % (0-5); Lymphocytes 9 % (21-51); Metamyelocyte 1 % (0-0); Monocytes 4 % (0-10); Neutrophil 62 % (42-75); Platelet Adequacy Comment Platelets Normal; Polychromasia SLIGHT = 2-3 cells HPF (0-2); Smudge Cells 6.8 %; Total Cell Count 103
[2023-01-18] MEDS: Ipratropium/Albuterol 3 ML NEB IPPB SCH ×3 (07:16→18:51)
[2023-01-18] MEDS ORDERED: Ipratropium/Albuterol 3 ML NEB IPPB PRN (07:36)
[2023-01-18] MEDS ORDERED: Apixaban 2.5 MG TAB PO SCH (09:00)
[2023-01-18] MEDS: Cefdinir 300 MG CAP PO SCH ×2 (10:45→20:58)
[2023-01-18] MEDS: Furosemide 20 MG TAB PO SCH (10:45)
[2023-01-18] MEDS: Brimonidine Tartrate 0.2% Ophth Soln 5 ml Bottle EA EYE SCH ×2 (10:46→21:05)
[2023-01-18] MEDS: Timolol 0.5% Ophth Soln 5 ml Bottle EA EYE SCH ×2 (10:46→21:04)
[2023-01-18] MEDS: HYDROcodone/Acetaminophen 5/325 mg Tablet PO PRN (10:59)
[2023-01-18] MEDS: Dextrose 5% in Water 1,000 ML IV SCH (13:59)
[2023-01-18] MEDS: Albumin 25% 25 GM/100 ML BOT IVPB SCH ×2 (13:59→19:30)
[2023-01-18] MEDS: Cyclobenzaprine 10 MG TAB PO SCH (20:58)
[2023-01-18] MEDS: Acetaminophen/Codeine 30-300mg Tablet PO SCH (20:59)
[2023-01-18] MEDS ORDERED: Furosemide 20 MG/2 ML VIAL SLOW IVP SCH (23:45)
[2023-01-19 00:20] LABS: Actual Bicarbonate (HCO3a) 26.9 mEq/L (22-28); Base Excess (BEa) 0.6 mEq/L (-2.0 to +3.0); CO2 Tension 52.8 mmHg (35.0-45.0); Calcium, Ionized (arterial) 1.14 mmol/L (1.12-1.30); Carboxyhemoglobin (COHb) 1.4 gm% (0.0-3.0); Hematocrit-ABG 22 % (36.0-47.0); Hemoglobin (Hb) 7.6 g/dL (12.0-16.0); Potassium - ABG Lab 4.88 mmol/L (3.70-5.30); pH, Arterial 7.325 (7.35-7.45)
[2023-01-19 00:36] LABS: O2 Tension (PaO2), arterial 58.6 mmHg (> 60.0)
[2023-01-19] MEDS: Albumin 25% 25 GM/100 ML BOT IVPB SCH ×2 (02:03→05:58)
[2023-01-19] MEDS: dilTIAZem 30 MG TAB PO SCH ×3 (02:03→06:02)
[2023-01-19 05:59] LABS: Hematocrit 25.4 % (36.0-47.0); Hemoglobin 7.2 g/dL (12.0-16.0); Manual Diff?? YES; Mean Corpuscular HGB CONC 28.3 g/dL (32.0-36.0); Mean Corpuscular Hemoglobin 24.6 pg (27.0-31.0); Mean Corpuscular Volume 86.7 fl (78.0-98.0); Mean Platelet Volume 9.7 fL (7.4-10.4); Platelet Count 356 10x3/uL (130-400); RBC Distribution Width 17.3 % (11.5-14.5); Red Blood Cell (RBC) Count 2.93 mill/uL (4.20-5.40); White Blood Cell (WBC) Count 11.4 10x3/uL (4.8-10.8)
[2023-01-19 06:12] LABS: Delete Auto Diff?? YES
[2023-01-19 06:26] LABS: Anion Gap 16 mmol/L (10-20); BUN (Urea Nitrogen) 87 mg/dL (9.8-20.1); Calc. Creatinine Clearance 16 mL/min (70-130); Calcium 8.9 mg/dL (7.8-10.44); Carbon Dioxide 26 mmol/L (23-31); Chloride 102 mmol/L (98-107); Estimated GFR 14; Glucose 97 mg/dL (83-110); Magnesium 2.9 mg/dL (1.6-2.6); Potassium 5.1 mmol/L (3.5-5.1); Sodium 139 mmol/L (136-145)
[2023-01-19 06:43] LABS: Anisocytosis SLIGHT = 6-15 cells HPF (0-5); Band 19 % (5-11); CellaVision Operator ID LAB.JMM; Hypochromia SLIGHT = 6-15 cells HPF (0-5); Lymphocytes 11 % (21-51); Macrocytosis SLIGHT = 6-15 cells HPF (0-5); Monocytes 2 % (0-10); Neutrophil 66 % (42-75); Ovalocytes SLIGHT = 2-5 cells HPF (0-1); Platelet Adequacy Comment Platelets Normal; Polychromasia SLIGHT = 2-3 cells HPF (0-2); Reactive Lymphocytes 1 % (0-10); Total Cell Count 100
[2023-01-19] MEDS: Ipratropium/Albuterol 3 ML NEB IPPB SCH (07:58)
[2023-01-19 08:57] VITALS: BP 114/65; TEMP 97.6
[2023-01-19] MEDS ORDERED: Furosemide 40 MG/4 ML VIAL SLOW IVP SCH (09:00)
[2023-01-19] MEDS: Cefdinir 300 MG CAP PO SCH (09:23)
[2023-01-19] MEDS: Acetaminophen/Codeine 30-300mg Tablet PO SCH (09:23)
[2023-01-19] MEDS: Brimonidine Tartrate 0.2% Ophth Soln 5 ml Bottle EA EYE SCH (09:23)
[2023-01-19] MEDS: Cyclobenzaprine 10 MG TAB PO SCH (09:23)
[2023-01-19] MEDS: Dextrose 5% in Water 1,000 ML IV SCH (09:27)
[2023-01-19] MEDS: Timolol 0.5% Ophth Soln 5 ml Bottle EA EYE SCH (09:27)
== END 2023-01-19 09:35 | disposition hospice, inpatient (51) | DRG 551 ==
LOC: SUATTDRO 03:41 → ERS 03:41 → 2SE 11:23
PROVIDERS: ADMIT Internal Medicine; ATTEND Internal Medicine
PROC: 2W35X3Z Immobilization of Back using Brace (ICD-10-PCS; principal; 2023-01-12)
PROC: 4A033R1 Measurement of Arterial Saturation, Peripheral, Percutaneous Approach (ICD-10-PCS; 2023-01-19)
DX: S22.081A Stable burst fracture of T11-T12 vertebra, initial encounter for closed fracture (principal); I50.33 Acute on chronic diastolic (congestive) heart failure; J96.01 Acute respiratory failure with hypoxia; I13.0 Hypertensive heart and chronic kidney disease with heart failure and stage 1 through stage 4 chronic kidney disease, or unspecified chronic kidney disease; I48.20 Chronic atrial fibrillation, unspecified; N17.9 Acute kidney failure, unspecified; N39.0 Urinary tract infection, site not specified; Z66 Do not resuscitate; Z51.5 Encounter for palliative care; N18.30 Chronic kidney disease, stage 3 unspecified; D63.1 Anemia in chronic kidney disease; R77.8 Other specified abnormalities of plasma proteins; H40.9 Unspecified glaucoma; B96.20 Unspecified Escherichia coli [E. coli] as the cause of diseases classified elsewhere; R62.7 Adult failure to thrive; R53.81 Other malaise; Z68.34 Body mass index [BMI] 34.0-34.9, adult; Z88.2 Allergy status to sulfonamides; Z88.1 Allergy status to other antibiotic agents; Z79.899 Other long term (current) drug therapy; Z98.49 Cataract extraction status, unspecified eye; Z90.710 Acquired absence of both cervix and uterus; Z90.49 Acquired absence of other specified parts of digestive tract; Z90.12 Acquired absence of left breast and nipple; Z82.49 Family history of ischemic heart disease and other diseases of the circulatory system
CPT/HCPCS: 36415; 51701; 70450; 71045; 72125; 72128; 72131; 80048; 80053; 81001; 82805; 83735; 83880; 84484; 85025; 85610; 85730; 87077; 87086; 87186; 90471; 90694; 93005; 94640; 96365; 96375; G0008; J0696; J1160; J1940; J2272; J3010; J3490; J7070; J7620; P9047; Q0162

== ENCOUNTER 2023-01-19 09:43 | Inpatient (IN) | payer OTHER ==
[2023-01-19] MEDS ORDERED: Scopolamine 1 mg/72 hour Patch TOP SCH (10:00)
[2023-01-19] MEDS ORDERED: Atropine Sulfate 1% Ophth Soln 5 ml Bottle SL PRN (10:08)
[2023-01-19] MEDS ORDERED: Acetaminophen 650 MG Suppository PR PRN (10:08)
[2023-01-19] MEDS ORDERED: Bisacodyl 10 MG SUPP PR PRN (10:09)
[2023-01-19] MEDS ORDERED: Lorazepam 2 MG/ML VIAL SLOW IVP PRN (10:10)
[2023-01-19] MEDS ORDERED: Morphine 2 MG/ML VIAL SLOW IVP PRN (10:11)
[2023-01-19 10:17] VITALS: BMI 34.5
[2023-01-19 11:04] VITALS: TEMP 97.6
[2023-01-19 11:19] VITALS: BP 84/42
[2023-01-19] MEDS ORDERED: Lorazepam 2 MG/ML VIAL SLOW IVP SCH (14:00)
[2023-01-19] MEDS ORDERED: Morphine 4 MG/ML VIAL SLOW IVP SCH (14:00)
== END 2023-01-19 14:02 | disposition expired | DRG 951 ==
LOC: 2SE 09:43
PROVIDERS: ADMIT Family Medicine; ATTEND Family Medicine
DX: Z51.5 Encounter for palliative care (principal); J96.01 Acute respiratory failure with hypoxia; I48.20 Chronic atrial fibrillation, unspecified; I50.32 Chronic diastolic (congestive) heart failure; N39.0 Urinary tract infection, site not specified; N17.9 Acute kidney failure, unspecified; I13.0 Hypertensive heart and chronic kidney disease with heart failure and stage 1 through stage 4 chronic kidney disease, or unspecified chronic kidney disease; D63.8 Anemia in other chronic diseases classified elsewhere; N18.30 Chronic kidney disease, stage 3 unspecified; Z88.2 Allergy status to sulfonamides; Z88.1 Allergy status to other antibiotic agents; Z79.01 Long term (current) use of anticoagulants; Z79.899 Other long term (current) drug therapy
CPT/HCPCS: J2060; J2272